=== PATIENT | male | born 2000 | race Native Hawaiian/Other Pacific Islander ===

== ENCOUNTER 2020-05-29 02:19 | Emergency (ER) | payer MEDICARE, MEDICAID, SELFPAY ==
--- NOTE | 2020-05-29 02:33 | ED_ITS ---
HPI - Psych General Chief Complaint: Psychiatric Symptoms Stated Complaint: FTT,NOT EATING OR TAKING MEDS,VIOLENT W/MOM Time Seen by Provider: 05/29/20 02:32 Source: family and EMS Mode of arrival: EMS Limitations: other (Sedated) History of Present Illness HPI Narrative: Patient comes via EMS. The patient's mother reports that for the last 2 weeks, the patient has been intermittently aggressive. Patient is known to have severe autism. Yesterday, EMS was called, they were unable to get the patient out of his room. The mother agreed with the patient that he could stay home. However today, the patient started hurting himself, punching kruse, hitting his head against a wall. EMS had to give the patient 5 mg of Haldol, Benadryl, Versed with no effect, the patient received 400 mg of ketamine prior to arrival. At this time, patient is sedated, his mother at bedside. The mother states that the patient has been in an institution in [place] in the past, he was referred from [facility]. The patient's mother requesting behavioral health network evaluation. According to the mother, the patient has otherwise been in good health, eating and drinking well. Patient refusing to take medications Related Data Home Medications Medication Instructions Recorded Confirmed aripiprazole [Abilify] 1 tab PO QAM 05/29/20 05/29/20 clonidine HCl 1 tab PO BEDTIME 05/29/20 05/29/20 clonidine HCl 1 tab PO QAM 05/29/20 05/29/20 gabapentin 1 tab PO TID 05/29/20 05/29/20 propranolol 1 tab PO BID 05/29/20 05/29/20 topiramate 1 tab PO BID 05/29/20 05/29/20 topiramate 2 tab PO BEDTIME 05/29/20 05/29/20 trazodone 1 - 2 tab PO BEDTIME PRN 05/29/20 05/29/20 Allergies Allergy/AdvReac Type Severity Reaction Status Date / Time amoxicillin [AMOXICILLIN] Allergy Intermediate RASH Unverified 12/24/19 16:39 Review of Systems Review of Systems: Yes Other (Sedated) [facility] Past Medical History Medical History (Updated 05/29/20 @ 03:33 by Lavonne Tai MD) Autism Social History Social History Advance Directives: No Advance Directives Information Provided: No Physical Exam Vital Signs: Vital Signs: Last Vital Signs Temp 98 F 05/29/20 02:34 Pulse 77 05/29/20 02:34 Resp 16 05/29/20 02:34 BP 102/49 L 05/29/20 02:34 Pulse Ox 97 05/29/20 02:34 Body Mass Index 40.6 Appearance: Sleeping, stated Eyes: Pupils equal, round and reactive to light. ENT: Pharynx normal. Neck: Normal inspection. Neck supple. No lymph nodes noted. No crepitus CVS: Normal heart rate and rhythm. Pulses normal. Normal S1 and S2 Respiratory: No respiratory distress. Breath sounds normal. No Wheezing. No rales Abdomen: Soft and nontender. No rigidity. No distention. good BS x4 Skin: Skin warm and dry. Normal skin color. Normal skin turgor. Extremities: No lower extremity edema. No lower extremity edema. No Lacerations. No Rash Neuro: Sedated, sleeping Course Course Course Narrative: Patient is medically cleared to be seen by [facility] once he wakes up. Sign-out given to Dr. Zabala [facility] - Psych Lab Data Result diagrams: 05/29/20 02:43 05/29/20 02:43 Labs: Lab Results 05/29/20 05/29/20 Range/Units 02:43 02:43 WBC 11.3 H (4.8-10.8) X10*3/uL RBC 5.85 H (4.60-5.80) X10*6/uL Hgb 17.3 (14.0-18.0) g/dl Hct 50.4 (42-52) % MCV 86.2 (80-98) fL MCH 29.6 (27.0-33.0) pg MCHC 34.3 (31.0-36.0) g/dl RDW 13.0 (11.0-16.0) % Plt Count 331 (160-400) X10*3/uL MPV 9.6 (9.4-12.4) fL Immature Gran % (Auto) 0.2 (0.0-0.4) % Neut % (Auto) 50.3 (45-73) % Lymph % (Auto) 38.1 (20-40) % Tripp % (Auto) 9.7 (2-11) % Eos % (Auto) 1.3 (0-4) % Baso % (Auto) 0.4 (0-2) % Lymph # (Auto) 4.3 (1.2-4.9) X10*3/uL Tripp # (Auto) 1.1 (0.1-1.2) X10*3/uL Eos # (Auto) 0.2 (0.0-0.4) X10*3/uL Baso # (Auto) 0.1 (0.0-0.2) X10*3/uL Abs Immat Gran (auto) 0.02 (0.00-0.03) X10*3/uL Absolute Neuts (auto) 5.7 (2.0-8.3) X10*3/uL Absolute Nucleated RBC 0.000 (0.0-0.012) X10*3/uL Nucleated RBC % (auto) 0.0 (0.0-0.2) /100WBC Sodium 141 (135-145) mmol/L Potassium 4.1 (3.3-5.1) mmol/L Chloride 110 H (96-108) mmol/L Carbon Dioxide 16 L (22-29) mmol/L Anion Gap 19 (12-20) BUN 16 (9-16) mg/dL Creatinine 0.99 (0.5-1.4) mg/dL Estim Creat Clear Calc 167.1 Estimated GFR > 60 Random Glucose 78 (60-115) mg/dL Calcium 9.7 (8.4-10.2) mg/dL Total Bilirubin 0.6 (0.0-1.0) mg/dL Direct Bilirubin 0.2 (0.0-0.5) mg/dL AST 9 (5-37) U/L ALT 22 (0-40) U/L Alkaline Phosphatase 101 (39-117) U/L Total Protein 7.6 (6.5-8.0) g/dL Albumin 4.7 (3.5-5.0) g/dL Discharge Plan Discharge Clinical Impression: Autism Prescriptions: No Action clonidine HCl 0.1 mg tablet 1 tab PO QAM RF: 0 gabapentin 600 mg tablet 1 tab PO TID RF: 0 clonidine HCl 0.2 mg tablet 1 tab PO BEDTIME RF: 0 propranolol 40 mg tablet 1 tab PO BID RF: 0 trazodone 100 mg tablet 1 - 2 tab PO BEDTIME PRN (Reason: Sleep) RF: 0 topiramate 100 mg tablet 2 tab PO BEDTIME RF: 0 aripiprazole [Abilify] 15 mg tablet 1 tab PO QAM RF: 0 topiramate 50 mg tablet 1 tab PO BID RF: 0
[2020-05-29 02:34] VITALS: BP 102/49; PULSE 77; RESP 16; TEMP 36.6; O2SAT 97; BMI 40.6
[2020-05-29 02:48] LABS: Basophils Absolute Auto 0.1 X10*3/uL (0.0-0.2); Basophils Percent Auto 0.4 % (0-2); Eosinophils Absolute Auto 0.2 X10*3/uL (0.0-0.4); Eosinophils Percent Auto 1.3 % (0-4); Hematocrit 50.4 % (42-52); Hemoglobin 17.3 g/dl (14.0-18.0); Imm Gran Abs Auto 0.02 X10*3/uL (0.00-0.03); Imm Gran Pct Auto 0.2 % (0.0-0.4); Lymphocytes Absolute Auto 4.3 X10*3/uL (1.2-4.9); Lymphocytes Percent Auto 38.1 % (20-40); MANUAL DIFF FLAG NO; Mean Corpuscular HGB Conc 34.3 g/dl (31.0-36.0); Mean Corpuscular Hemoglobin 29.6 pg (27.0-33.0); Mean Corpuscular Volume 86.2 fL (80-98); Mean Platelet Volume 9.6 fL (9.4-12.4); Monocytes Absolute Auto 1.1 X10*3/uL (0.1-1.2); Monocytes Percent Auto 9.7 % (2-11); Neutrophils Absolute Auto 5.7 X10*3/uL (2.0-8.3); Neutrophils Percent Auto 50.3 % (45-73); Platelet Count 331 X10*3/uL (160-400); Red Blood Count 5.85 X10*6/uL (4.60-5.80); White Blood Count 11.3 X10*3/uL (4.8-10.8)
[2020-05-29 03:19] LABS: Alanine Aminotransferase 22 U/L (0-40); Albumin Level 4.7 g/dL (3.5-5.0); Alkaline Phosphatase 101 U/L (39-117); Anion Gap 19 (12-20); Aspartate Amino Transferase 9 U/L (5-37); Bilirubin Direct 0.2 mg/dL (0.0-0.5); Bilirubin Total 0.6 mg/dL (0.0-1.0); Blood Urea Nitrogen 16 mg/dL (9-16); Calcium 9.7 mg/dL (8.4-10.2); Carbon Dioxide 16 mmol/L (22-29); Chloride 110 mmol/L (96-108); Creatinine Clr Calc Pharmacy 167.1; Estimated Glomerular Filt Rate > 60; Glucose Random 78 mg/dL (60-115); Potassium 4.1 mmol/L (3.3-5.1); Sodium 141 mmol/L (135-145); Total Protein 7.6 g/dL (6.5-8.0)
--- NOTE | 2020-05-29 03:24 | PC.NURSE ---
PT SLEEPING, RESPIRATIONS EASY, N/L. PT ON MONITOR. MOTHER AT BEDSIDE WITH PT. LABS DRAWN TO LAB. PT AWAITING TO GO TO CRISIS FOR EVAL.
[2020-05-29 06:00] VITALS: RESP 18
--- NOTE | 2020-05-29 06:47 | PC.NURSE ---
PT's mother is a comfort to the PT. Mother is familiar with hospital management and stated that she would try to get permission to sit with her son today on the unit.
--- NOTE | 2020-05-29 07:13 | PC.NURSE ---
Report received. Pt currently sleeping, respirations even and unlabored, in no apparent distress. Pt waiting to be seen by N.
[2020-05-29 09:38] VITALS: RESP 20
--- NOTE | 2020-05-29 14:09 | PC.NURSE ---
Pt currently standing in his room, calm and cooperative. Pt confused. Permission from nursing petroleum inspector supervisor for Pt's mother to visit as PT has autism and difficulties caring for himself and making needs known.
[2020-05-29 14:48] VITALS: BP 143/72; PULSE 90; RESP 16; TEMP 36.4; O2SAT 95
[2020-05-29] MEDS: Gabapentin 600 MG TABLET PO (15:06)
--- NOTE | 2020-05-29 18:33 | PC.NURSE ---
BHN at bedside for eval.
[2020-05-29 20:50] VITALS: BP 141/79; PULSE 110; RESP 20; TEMP 36.4; O2SAT 98
--- NOTE | 2020-05-29 20:54 | PC.NURSE ---
attempted to give patient night meds. patient groaned and kept eyes shut. will attempt to medicate again before 2200.
[2020-05-29 22:00] VITALS: RESP 16
[2020-05-30] VITALS (12 sets, daily range): BP systolic 131–142; BP diastolic 66–78; PULSE 95–112; RESP 18–20; TEMP 36.1–36.8; O2SAT 95–100
--- NOTE | 2020-05-30 00:39 | PC.NURSE ---
contact made to n: plan fo potential to be seen tonight, but unlikely.
--- NOTE | 2020-05-30 01:02 | PC.NURSE ---
pt requested to call mom. mother called on patient phone. pt given apple juice and ate snack. monitoring for further needs.
--- NOTE | 2020-05-30 01:10 | PC.NURSE ---
mom given update. plan to visit in am. patient given pudding. denies complaints.
--- NOTE | 2020-05-30 07:43 | PC.NURSE ---
Report received from TRU Yost. Pt awake, ate breakfast, currently back in bed, resting.
[2020-05-30] MEDS: ARIPiprazole 15 MG TABLET PO (09:07)
[2020-05-30] MEDS: Propranolol HCL 40 MG TABLET PO ×2 (09:07→19:59)
[2020-05-30] MEDS: Topiramate 25 MG TABLET 50 MG PO ×2 (09:08→20:00)
[2020-05-30] MEDS: cloNIDine HCL 0.1 MG TABLET PO (09:08)
[2020-05-30] MEDS: Gabapentin 600 MG TABLET PO ×3 (09:08→19:59)
--- NOTE | 2020-05-30 09:31 | PC.NURSE ---
Pt resting, awoken for medications, compliant w/ medications. Resting in room, now awake, directed to bathroom. Mother called earlier, spoke w/ MHA- will be in later this morning, pt aware.
--- NOTE | 2020-05-30 14:58 | PC.NURSE ---
Pt awake, alert. Mother in to see pt, pt eating snack.
--- NOTE | 2020-05-30 15:41 | PC.NURSE ---
Pt w/ mother, showering, med compliant.
[2020-05-30] MEDS: Bacitracin Oint 14 GM TUBE 1 APPL TOPICAL ×2 (16:12→20:03)
--- NOTE | 2020-05-30 16:12 | PC.NURSE ---
Small raised red area noted by mother on right thigh. A Renschler aware, hot compress applied, bacitracin applied as ordered
[2020-05-30 16:37] LABS: COVID-19 Test Negative (Negative)
--- NOTE | 2020-05-30 18:10 | PC.NURSE ---
Pt frequently out on unit, rarely speaking, smiling occasionally. Now in room, eating dinner.
[2020-05-30] MEDS: Topiramate 100 MG TABLET 200 MG PO (19:59)
[2020-05-30] MEDS: cloNIDine HCL 0.2 MG TABLET PO (19:59)
[2020-05-30] MEDS: traZODone HCL 100 MG TABLET PO (20:00)
--- NOTE | 2020-05-30 20:36 | PC.NURSE ---
Patient in hallway, calm, quiet, denied distress, compliant with HS PO medication will continue to monitor.
[2020-05-31] VITALS (10 sets, daily range): BP systolic 113–136; BP diastolic 61–75; PULSE 69–95; RESP 16–20; TEMP 36.1–36.6; O2SAT 94–99
[2020-05-31] MEDS: LORazepam 1 MG TABLET 2 MG PO ×2 (03:51→16:05)
--- NOTE | 2020-05-31 07:21 | PC.NURSE ---
Report received from TRU Queen. Pt resting, resp unlabored.
[2020-05-31] MEDS: Topiramate 25 MG TABLET 50 MG PO ×2 (09:58→20:58)
[2020-05-31] MEDS: Gabapentin 600 MG TABLET PO ×3 (09:59→20:58)
[2020-05-31] MEDS: cloNIDine HCL 0.1 MG TABLET PO (09:59)
[2020-05-31] MEDS: Propranolol HCL 40 MG TABLET PO ×2 (10:00→20:58)
[2020-05-31] MEDS: ARIPiprazole 15 MG TABLET PO (10:01)
--- NOTE | 2020-05-31 11:14 | PC.NURSE ---
Mother called to say she was going to visit this afternoon.
[2020-05-31] MEDS: Bacitracin Oint 14 GM TUBE 1 APPL TOPICAL ×3 (11:15→21:01)
--- NOTE | 2020-05-31 11:15 | PC.NURSE ---
Right groin- small raised red area treated as ordered - area clean, no increase noted from yesterday.
--- NOTE | 2020-05-31 14:00 | PC.NURSE ---
Pt currently eating lunch, no concerns reported, pleasant, smiling occasionally.
--- NOTE | 2020-05-31 15:51 | PC.NURSE ---
Mother in w/ pt- pt showered, linens changed, pt cooperative w/ care, rarely verbal, no evidence of distress or pain noted.
--- NOTE | 2020-05-31 19:49 | PC.NURSE ---
Patient is in hallway, wandering quietly, starring at nurses, able to express need well, denied distress, will continue to monitor.
[2020-05-31] MEDS: Topiramate 100 MG TABLET 200 MG PO (20:58)
[2020-05-31] MEDS: cloNIDine HCL 0.2 MG TABLET PO (20:58)
--- NOTE | 2020-06-01 02:03 | PC.NURSE ---
patient asleep, unable to assesses [place]zell scale
--- NOTE | 2020-06-01 07:19 | PC.NURSE ---
REPORT FROM DIAZ. PT UP AT BEDSIDE EATING BREAKFAST
[2020-06-01 09:07] VITALS: BP 123/64; PULSE 87
[2020-06-01] MEDS: cloNIDine HCL 0.1 MG TABLET PO (09:07)
[2020-06-01] MEDS: Topiramate 25 MG TABLET 50 MG PO ×2 (09:07→20:02)
[2020-06-01] MEDS: Gabapentin 600 MG TABLET PO ×3 (09:07→20:02)
[2020-06-01] MEDS: ARIPiprazole 15 MG TABLET PO (09:08)
[2020-06-01 09:12] VITALS: BP 123/64; PULSE 87
[2020-06-01] MEDS: Propranolol HCL 40 MG TABLET PO ×2 (09:12→20:02)
--- NOTE | 2020-06-01 15:42 | PC.NURSE ---
Patient accompanied by mom upon arrival. No distress. Mom left but will return. will monitor for changes.
[2020-06-01 17:07] VITALS: BP 138/67; PULSE 72; RESP 18; TEMP 36.7; O2SAT 99
--- NOTE | 2020-06-01 19:41 | PC.NURSE ---
Patient is in hallway wandering quietly, behavior calm and quiet, no distress reported, will continue to monitor.
[2020-06-01 20:00] VITALS: BP 117/65; PULSE 88
[2020-06-01 20:02] VITALS: BP 117/65; PULSE 88
[2020-06-01] MEDS: traZODone HCL 100 MG TABLET PO (20:02)
[2020-06-01] MEDS: Topiramate 100 MG TABLET 200 MG PO (20:02)
[2020-06-01] MEDS: cloNIDine HCL 0.2 MG TABLET PO (20:02)
[2020-06-01] MEDS: Bacitracin Oint 14 GM TUBE 1 APPL TOPICAL (20:07)
[2020-06-01] MEDS: LORazepam 1 MG TABLET 2 MG PO (22:02)
[2020-06-02 06:00] VITALS: BP 117/65; PULSE 86; RESP 18; TEMP 35.7; O2SAT 98
--- NOTE | 2020-06-02 07:01 | PC.NURSE ---
Report received. PT currently eating breakfast, calm and cooperative. PT is inpatient bedsearch.
[2020-06-02 09:18] VITALS: BP 140/69; PULSE 82; RESP 16; TEMP 36.9; O2SAT 95
[2020-06-02] MEDS: Topiramate 25 MG TABLET 50 MG PO ×2 (09:43→21:52)
[2020-06-02 09:44] VITALS: BP 140/69; PULSE 82
[2020-06-02] MEDS: Propranolol HCL 40 MG TABLET PO ×2 (09:44→21:53)
[2020-06-02] MEDS: Bacitracin Oint 14 GM TUBE 1 APPL TOPICAL (09:44)
[2020-06-02] MEDS: Gabapentin 600 MG TABLET PO ×3 (09:44→21:55)
[2020-06-02] MEDS: ARIPiprazole 15 MG TABLET PO (09:44)
[2020-06-02] MEDS: cloNIDine HCL 0.1 MG TABLET PO (09:44)
--- NOTE | 2020-06-02 10:09 | PC.NURSE ---
PT resting, calm and cooperative. Pt requested to call his mom, she states she will be in to visit later this afternoon.
--- NOTE | 2020-06-02 19:10 | PC.NURSE ---
Report received. PT is standing by the nurse's station, asking to speak with his mother. Calm and cooperative. PT is inpatient bed search.
[2020-06-02 20:00] VITALS: BP 136/73; PULSE 94; RESP 18; TEMP 36.5; O2SAT 95
[2020-06-02 21:53] VITALS: BP 136/73; PULSE 94
[2020-06-02 21:54] VITALS: BP 136/73; PULSE 94
[2020-06-02] MEDS: Topiramate 100 MG TABLET 200 MG PO (21:54)
[2020-06-02] MEDS: cloNIDine HCL 0.2 MG TABLET PO (21:54)
[2020-06-03] VITALS: BP 131/78; PULSE 84; RESP 18; TEMP 35.8; O2SAT 95
--- NOTE | 2020-06-03 07:05 | PC.NURSE ---
Report received. PT currently resting, calm and cooperative. PT is inpatient bedsearch.
[2020-06-03 07:41] VITALS: BP 114/60; PULSE 76; RESP 16; TEMP 36.9; O2SAT 96
[2020-06-03 09:17] VITALS: BP 114/60; PULSE 76
[2020-06-03] MEDS: cloNIDine HCL 0.1 MG TABLET PO (09:17)
[2020-06-03] MEDS: ARIPiprazole 15 MG TABLET PO (09:17)
[2020-06-03] MEDS: Propranolol HCL 40 MG TABLET PO ×2 (09:17→20:05)
[2020-06-03] MEDS: Gabapentin 600 MG TABLET PO ×3 (09:17→20:04)
[2020-06-03] MEDS: Bacitracin Oint 14 GM TUBE 1 APPL TOPICAL ×2 (09:17→20:07)
[2020-06-03] MEDS: Topiramate 25 MG TABLET 50 MG PO ×2 (09:17→20:05)
[2020-06-03] MEDS: LORazepam 1 MG TABLET 2 MG PO (15:47)
[2020-06-03 16:00] VITALS: RESP 19
--- NOTE | 2020-06-03 17:46 | PC.NURSE ---
PT currently walking around his room, calm and cooperative.
--- NOTE | 2020-06-03 19:44 | PC.NURSE ---
Patient just got back to is room after finishing his ice cream in the milieu, calm and quiet, delayed response, denied distress, will continue to monitor
[2020-06-03] MEDS: Topiramate 100 MG TABLET 200 MG PO (20:04)
[2020-06-03 20:05] VITALS: BP 149/74; PULSE 76
[2020-06-03] MEDS: cloNIDine HCL 0.2 MG TABLET PO (20:05)
[2020-06-03] MEDS: traZODone HCL 100 MG TABLET PO (20:05)
[2020-06-03 20:11] VITALS: BP 149/74; PULSE 76; RESP 18; TEMP 36.3; O2SAT 96
[2020-06-04] VITALS (8 sets, daily range): BP systolic 112–141; BP diastolic 68–81; PULSE 72–102; RESP 15–20; TEMP 36.4–36.7; O2SAT 92–95
--- NOTE | 2020-06-04 07:31 | PC.NURSE ---
Report received from TRU Queen. Pt resting currently, awake on arrival, no concerns reported.
[2020-06-04] MEDS: cloNIDine HCL 0.1 MG TABLET PO (09:08)
[2020-06-04] MEDS: ARIPiprazole 15 MG TABLET PO (09:08)
[2020-06-04] MEDS: Gabapentin 600 MG TABLET PO ×3 (09:09→20:06)
[2020-06-04] MEDS: Propranolol HCL 40 MG TABLET PO ×2 (09:09→20:06)
[2020-06-04] MEDS: Topiramate 25 MG TABLET 50 MG PO ×2 (09:09→20:06)
--- NOTE | 2020-06-04 11:05 | PC.NURSE ---
Pt awake, alert. Pt appears less bright today. Mother in to see pt. BHN in currently with pt.
--- NOTE | 2020-06-04 12:37 | PC.NURSE ---
Pt awake, pacing w/ MHA, listened to music briefly, dancing and singing.
--- NOTE | 2020-06-04 14:44 | PC.NURSE ---
Mother in w/ pt- pt medicated for increased anxiety, restlessness. Pt reporting that he wants to go home.
[2020-06-04] MEDS: LORazepam 1 MG TABLET 2 MG PO (14:54)
--- NOTE | 2020-06-04 16:41 | PC.NURSE ---
Pt mildly restless, walked w/ pt around unit, then pt called mother.
[2020-06-04] MEDS: traZODone HCL 100 MG TABLET PO (20:06)
[2020-06-04] MEDS: Topiramate 100 MG TABLET 200 MG PO (20:06)
[2020-06-04] MEDS: cloNIDine HCL 0.2 MG TABLET PO (20:07)
[2020-06-04] MEDS: Bacitracin Oint 14 GM TUBE 1 APPL TOPICAL (20:20)
--- NOTE | 2020-06-04 22:00 | PC.NURSE ---
Patient in bed currently, resting quietly, no distress observed or reported, spoke with mother on phone, compliant with HS PO medication, will continue to monitor.
--- NOTE | 2020-06-05 05:50 | PC.NURSE ---
Patient just got up, upset, confused, called mother and have him talked to mother to deescalate the behavior, per mother this is new development which worried her at home, provider notified/no new order at this time, patient's mood settled after talking to his mother, used bathroom and back, currently in his bed, will continue to monitor.
[2020-06-05] MEDS: Gabapentin 600 MG TABLET PO ×3 (08:49→20:02)
[2020-06-05] MEDS: Topiramate 25 MG TABLET 50 MG PO ×2 (08:49→20:01)
[2020-06-05 08:57] VITALS: BP 124/64; PULSE 79
[2020-06-05] MEDS: Propranolol HCL 40 MG TABLET PO ×2 (08:57→20:02)
[2020-06-05 08:59] VITALS: BP 124/64; PULSE 79
[2020-06-05] MEDS: cloNIDine HCL 0.1 MG TABLET PO (08:59)
[2020-06-05 09:17] VITALS: BP 124/64; PULSE 79; RESP 20; TEMP 36.4; O2SAT 93
[2020-06-05] MEDS: ARIPiprazole 15 MG TABLET PO (09:24)
--- NOTE | 2020-06-05 09:36 | PC.NURSE ---
Pt resting in bed at current. No signs of distress. Respirations unlabored.
--- NOTE | 2020-06-05 11:54 | PC.NURSE ---
Pt resting in room, no complaints or signs of agitation at this time.
--- NOTE | 2020-06-05 13:51 | PC.NURSE ---
RN spoke with La Nena from [facility]. Pt has been accepted at [facility] for a pending admission time of 1000 tomorrow,
--- NOTE | 2020-06-05 16:37 | PC.NURSE ---
Pt was awake, alert, smiling at times. Currently resting in room.
--- NOTE | 2020-06-05 17:41 | PC.NURSE ---
Pt appears to be increasingly anxious, asking to call his mother twice in short period of time. Provider aware. Pt also declining vital signs at this time.
[2020-06-05] MEDS: LORazepam 1 MG TABLET 2 MG PO (17:45)
--- NOTE | 2020-06-05 18:09 | PC.NURSE ---
Pt eating dinner at this time, appears less anxious.
[2020-06-05 20:01] VITALS: BP 125/67; PULSE 95
[2020-06-05] MEDS: cloNIDine HCL 0.2 MG TABLET PO (20:01)
[2020-06-05 20:02] VITALS: BP 125/67; PULSE 95
[2020-06-05] MEDS: Topiramate 100 MG TABLET 200 MG PO (20:02)
[2020-06-05] MEDS: traZODone HCL 100 MG TABLET PO (20:02)
--- NOTE | 2020-06-05 21:42 | PC.NURSE ---
Patient compliant with HS PO medication, VS at baseline, Behavior calm and quiet, patient spoke with his mother, [facility] called/spoke with Jewel/confirmed admission/paper work with ED corporation secretary/patient's ETA is 1030 am at [facility]. Mother made aware, will continue to monitor.
[2020-06-06] MEDS: LORazepam 1 MG TABLET 2 MG PO ×2 (01:16→08:28)
--- NOTE | 2020-06-06 06:53 | PC.NURSE ---
Report received. PT currently sleeping, respirations even and unlabored, in no apaprent distress. Pt to be transferred to [facility] this morning.
[2020-06-06 07:49] VITALS: BP 119/73; PULSE 94; RESP 20; TEMP 36.3; O2SAT 94
[2020-06-06 08:19] VITALS: O2SAT 95
[2020-06-06 08:28] VITALS: BP 119/73; PULSE 94
[2020-06-06] MEDS: Topiramate 25 MG TABLET 50 MG PO (08:28)
[2020-06-06] MEDS: cloNIDine HCL 0.1 MG TABLET PO (08:28)
[2020-06-06] MEDS: Gabapentin 600 MG TABLET PO (08:28)
[2020-06-06] MEDS: ARIPiprazole 15 MG TABLET PO (08:29)
[2020-06-06] MEDS: Propranolol HCL 40 MG TABLET PO (08:29)
[2020-06-06] MEDS: Bacitracin Oint 14 GM TUBE 1 APPL TOPICAL (08:30)
[2020-06-06 09:07] VITALS: BP 120/86; PULSE 96; RESP 16; TEMP 36.9; O2SAT 95
== END 2020-06-06 09:25 ==
PROVIDERS: Physician Assistant; Emergency Provider Emergency Medicine
DX: F84.0 Autistic disorder (principal); F91.9 Conduct disorder, unspecified; Z91.14 Patient's other noncompliance with medication regimen; Z20.822 Contact with and (suspected) exposure to COVID-19; Z79.899 Other long term (current) drug therapy; Z72.89 Other problems related to lifestyle
CPT/HCPCS: 36415; 80048; 80076; 85025; 87635; 99285

== ENCOUNTER 2020-08-18 04:58 | Emergency (ER) | payer MEDICARE, MEDICAID, SELFPAY ==
[2020-08-18] VITALS (9 sets, daily range): BP systolic 125–150; BP diastolic 55–85; PULSE 81–112; RESP 16–20; TEMP 36.6–37.1; O2SAT 95–100; BMI 42.8
--- NOTE | 2020-08-18 05:41 | ED_ITS ---
HPI - Psych General Chief Complaint: Psychiatric Symptoms Stated Complaint: CRISIS Time Seen by Provider: 08/18/20 05:33 Source: EMS Mode of arrival: EMS Limitations: altered mental status History of Present Illness HPI Narrative: Patient comes to the emergency room for increased aggression. The mother reports that over last 3 days, patient has been hitting himself, biting his arms ( without roken skin). Patient has been up at nights, screaming, banging on the kruse and the doors. This evening, the patient started screaming, went to the patient's room, shook up violently the mother, the father tried to calm him down, but push the father aside. The ambulance had to be called, police department was there to. Patient had to be medically restrained with 400 mg of IM ketamine. Patient is unable to give any history. Patient is now at patient's bedside. Patient is known to have autism and have episodes of severe aggression. Related Data Home Medications Medication Instructions Recorded Confirmed aripiprazole [Abilify] 15 mg PO QAM 05/29/20 08/18/20 clonidine HCl 0.2 mg PO BEDTIME 05/29/20 08/18/20 clonidine HCl 1 tab PO QAM 05/29/20 08/18/20 gabapentin 600 mg PO TID 05/29/20 08/18/20 topiramate 50 mg PO BID 05/29/20 08/18/20 topiramate 100 mg PO BEDTIME 05/29/20 08/18/20 trazodone 1 - 2 tab PO BEDTIME PRN 05/29/20 08/18/20 Allergies Allergy/AdvReac Type Severity Reaction Status Date / Time amoxicillin [AMOXICILLIN] Allergy Intermediate RASH Verified 05/31/20 11:13 Review of Systems Review of Systems: Yes Unobtainable due to mental condition PMFSH Past Medical History Medical History Autism Social History Social History Advance Directives: No Advance Directives Information Provided: No Physical Exam Vital Signs: Vital Signs: Last Vital Signs Temp 98.4 F 08/18/20 06:24 Pulse 81 08/18/20 06:24 Resp 19 08/18/20 06:24 BP 125/55 L 08/18/20 06:24 Pulse Ox 95 08/18/20 06:24 Body Mass Index 42.8 Appearance: Alert. Unable to give any history, patient is awake but just received ketamine prior to arrival Eyes: Pupils equal, round and reactive to light. ENT: Pharynx normal. Neck: Normal inspection. Neck supple. No lymph nodes noted. No crepitus CVS: Normal heart rate and rhythm. Pulses normal. Respiratory: No respiratory distress. Breath sounds normal. No Wheezing. No rales Abdomen: Soft and nontender. No rigidity. No distention. Skin: Skin warm and dry. Patient has ecchymosis in his forearms, no broken skin. Extremities: No lower extremity edema. Neuro: Patient recently received ketamine, patient is awake, unable to follow commands at the moment. Course Course Course Narrative: Patient will be evaluated by [facility]. Patient received 400 mg of IM ketamine, patient is awake, calm. Sign-out given to Dr. Zabala. [facility] - Psych Lab Data Labs: Lab Results 08/18/20 Range/Units 05:34 COVID-19 ([facility]) Negative (Negative) COVID-19 Clin Com See Note Discharge Plan Discharge Prescriptions: No Action clonidine HCl 0.1 mg tablet 1 tab PO QAM RF: 0 gabapentin 600 mg tablet 600 mg PO TID RF: 0 clonidine HCl 0.2 mg tablet 0.2 mg PO BEDTIME RF: 0 trazodone 100 mg tablet 1 - 2 tab PO BEDTIME PRN (Reason: Sleep) RF: 0 topiramate 100 mg tablet 100 mg PO BEDTIME RF: 0 aripiprazole [Abilify] 15 mg tablet 15 mg PO QAM RF: 0 topiramate 50 mg tablet 50 mg PO BID RF: 0
[2020-08-18 05:57] LABS: COVID-19 Test Negative (Negative); IDNOW Serial# 9DD0AD1C
--- NOTE | 2020-08-18 06:39 | PC.NURSE ---
MADHAVIN faxed/called/spoke with Kanika and program coordinator for residence life Lachelle, provided information required, patient will be seen in within an hour, N made aware that patient is not in position to provide you any information because of patient's mental status, need to call mother Carie, for intake, patient is in bed appears sleeping, no distress observed/reported, VSS, will continue to monitor.
--- NOTE | 2020-08-18 07:15 | PC.NURSE ---
Report received from TRU Queen. Pt resting, resp unlabored.
[2020-08-18] MEDS: Topiramate 25 MG TABLET 50 MG PO ×2 (08:59→20:36)
[2020-08-18] MEDS: Gabapentin 600 MG TABLET PO ×3 (08:59→20:36)
[2020-08-18] MEDS: ARIPiprazole 15 MG TABLET PO (09:00)
[2020-08-18] MEDS: cloNIDine HCL 0.1 MG TABLET PO (09:00)
--- NOTE | 2020-08-18 09:06 | PC.NURSE ---
Pt resting, easily awakened for medications and vitals, cooperative w/ care, no concerns reported.
--- NOTE | 2020-08-18 10:50 | PC.NURSE ---
Pt resting, resp unlabored
--- NOTE | 2020-08-18 12:05 | PC.NURSE ---
Pt resting, resp unlabored
--- NOTE | 2020-08-18 12:18 | PC.NURSE ---
Pt resting, resp unlabored
--- NOTE | 2020-08-18 14:22 | PC.NURSE ---
Pt eating lunch, continues to be in behavioral control, no concerns reported.
--- NOTE | 2020-08-18 15:52 | PC.NURSE ---
Pt awake, assisted w/ call to mother.
--- NOTE | 2020-08-18 17:18 | PC.NURSE ---
Pt's mother in to speak w/ BHN
[2020-08-18] MEDS: LORazepam 1 MG TABLET 2 MG PO (17:31)
--- NOTE | 2020-08-18 18:05 | PC.NURSE ---
Pt ate dinner, appears mildly restless, but in behavioral control.
--- NOTE | 2020-08-18 19:19 | PC.NURSE ---
Patient in bed resting quietly, no distress observed/reported, patient decent day with baseline behavior presentation, will continue to monitor.
[2020-08-18] MEDS: Topiramate 100 MG TABLET PO (20:36)
[2020-08-18] MEDS: traZODone HCL 100 MG TABLET PO (20:36)
[2020-08-18] MEDS: cloNIDine HCL 0.2 MG TABLET PO (20:37)
[2020-08-19] VITALS (7 sets, daily range): BP systolic 109–151; BP diastolic 51–95; PULSE 90–107; RESP 15–20; TEMP 35.9–36.9; O2SAT 94–96
--- NOTE | 2020-08-19 07:28 | PC.NURSE ---
Report received from TRU Queen. Pt resting, resp unlabored.
[2020-08-19] MEDS: cloNIDine HCL 0.1 MG TABLET PO (07:56)
[2020-08-19] MEDS: ARIPiprazole 15 MG TABLET PO (07:57)
[2020-08-19] MEDS: Gabapentin 600 MG TABLET PO ×3 (07:57→20:39)
[2020-08-19] MEDS: Topiramate 25 MG TABLET 50 MG PO ×2 (07:57→20:39)
--- NOTE | 2020-08-19 08:57 | PC.NURSE ---
Pt resting, resp unlabored
--- NOTE | 2020-08-19 12:54 | PC.NURSE ---
Pt resting, resp unlabored
--- NOTE | 2020-08-19 15:35 | PC.NURSE ---
pt's mother in, assisted pt w/ showering, brought in meal. Pt cooperatiove w/ care, affect even.
--- NOTE | 2020-08-19 17:18 | PC.NURSE ---
Pt resting in room, resp unlabored
--- NOTE | 2020-08-19 19:30 | PC.NURSE ---
Report received. PT is resting quietly in bed. Calm and cooperative. PT is inpatient bed search.
[2020-08-19] MEDS: Topiramate 100 MG TABLET PO (20:39)
[2020-08-19] MEDS: cloNIDine HCL 0.2 MG TABLET PO (20:39)
[2020-08-19] MEDS: traZODone HCL 100 MG TABLET PO (20:44)
--- NOTE | 2020-08-20 06:54 | PC.NURSE ---
received report from previous RN patient appears in no distress, patient appears to remain asleep with even unlabored breaths.
[2020-08-20 07:54] VITALS: BP 122/71; PULSE 80; RESP 18; TEMP 36.6; O2SAT 96
[2020-08-20 07:58] VITALS: BP 122/71; PULSE 80
[2020-08-20] MEDS: cloNIDine HCL 0.1 MG TABLET PO (07:58)
[2020-08-20] MEDS: Topiramate 25 MG TABLET 50 MG PO ×2 (07:58→21:33)
[2020-08-20] MEDS: Gabapentin 600 MG TABLET PO ×3 (07:58→21:32)
[2020-08-20] MEDS: ARIPiprazole 15 MG TABLET PO (07:58)
--- NOTE | 2020-08-20 09:03 | PC.NURSE ---
mother called to check on status of patient, verified that shed arrive around 12pm
--- NOTE | 2020-08-20 09:19 | MHC.CARE ---
CARE spoke with particle board supervisor Alli at [facility] who confirmed that pt is a [facility] DDS bedsearch and is aware pt is overdue for MSU and they are sending a clinician to do a re-eval this am.
--- NOTE | 2020-08-20 19:00 | PC.NURSE ---
Report received. PT is pacing around room. Calm and cooperative. PT is inpatient bed search.
[2020-08-20] MEDS: Topiramate 100 MG TABLET PO (21:33)
[2020-08-20 21:34] VITALS: BP 125/72; PULSE 85
[2020-08-20] MEDS: cloNIDine HCL 0.2 MG TABLET PO (21:34)
[2020-08-20 21:39] VITALS: BP 125/72; PULSE 85; RESP 20; TEMP 36.9; O2SAT 97
[2020-08-21] MEDS: traZODone HCL 100 MG TABLET PO ×2 (00:03→21:30)
[2020-08-21 00:13] VITALS: BP 120/72; PULSE 87; RESP 17; TEMP 36.2; O2SAT 97
--- NOTE | 2020-08-21 07:01 | PC.NURSE ---
Report recieved. PT currently resting, calm and cooperative. Ambulated to bathroom with steady gait. PT is inpatient bedsearch.
[2020-08-21 08:22] VITALS: BP 126/69; PULSE 93; RESP 18; TEMP 36.5; O2SAT 96
[2020-08-21 08:28] VITALS: BP 126/69; PULSE 93
[2020-08-21] MEDS: Gabapentin 600 MG TABLET PO ×3 (08:28→21:30)
[2020-08-21] MEDS: Topiramate 25 MG TABLET 50 MG PO ×2 (08:28→21:30)
[2020-08-21] MEDS: ARIPiprazole 15 MG TABLET PO (08:28)
[2020-08-21] MEDS: cloNIDine HCL 0.1 MG TABLET PO (08:28)
[2020-08-21] MEDS: LORazepam 1 MG TABLET 2 MG PO ×2 (14:26→23:05)
[2020-08-21 16:34] VITALS: BP 128/64; PULSE 90; RESP 18; TEMP 36.9; O2SAT 97
--- NOTE | 2020-08-21 19:18 | PC.NURSE ---
Report received. PT is sitting in his room, eating a sandwich. Calm and cooperative. PT is inpatient bed search.
[2020-08-21 21:31] VITALS: BP 132/88; PULSE 97
[2020-08-21] MEDS: cloNIDine HCL 0.2 MG TABLET PO (21:31)
[2020-08-21] MEDS: Topiramate 100 MG TABLET PO (21:31)
[2020-08-22 06:53] VITALS: BP 117/66; PULSE 102; RESP 18; TEMP 36.9; O2SAT 98
--- NOTE | 2020-08-22 07:20 | PC.NURSE ---
Report received from TRU Kathleen. Pt awake, ate breakfast, no concerns reported.
[2020-08-22 07:59] VITALS: BP 133/66; PULSE 87
[2020-08-22] MEDS: Gabapentin 600 MG TABLET PO ×3 (07:59→20:03)
[2020-08-22] MEDS: cloNIDine HCL 0.1 MG TABLET PO (07:59)
[2020-08-22] MEDS: Topiramate 25 MG TABLET 50 MG PO ×2 (07:59→20:02)
[2020-08-22] MEDS: ARIPiprazole 15 MG TABLET PO (08:00)
[2020-08-22 08:57] VITALS: BP 128/68; PULSE 93; RESP 18; TEMP 36.8; O2SAT 97
--- NOTE | 2020-08-22 09:42 | PC.NURSE ---
Pt OOB briefly, anxious briefly, focused on shutting another patient's door- able to redirect, called his mother, is currently resting, resp unlabored.
--- NOTE | 2020-08-22 12:16 | PC.NURSE ---
Pt's mother in, pt showered, continues to appear mildly restless, currently standing in room. When asked pt stated that he was 'happy.'
[2020-08-22 14:00] VITALS: RESP 20
--- NOTE | 2020-08-22 14:26 | PC.NURSE ---
Pt evaluated w/ BHN who will contact mother for update re:DDS arrangements.
--- NOTE | 2020-08-22 15:38 | PC.NURSE ---
Pt's mother in w/ pt- plan per mother and BHN pt to be discharged tomorrow back to mother's care.
[2020-08-22 17:39] VITALS: BP 139/73; PULSE 97; RESP 16; TEMP 36.7; O2SAT 95
[2020-08-22] MEDS: traZODone HCL 100 MG TABLET PO (19:53)
[2020-08-22] MEDS: LORazepam 1 MG TABLET 2 MG PO (19:53)
[2020-08-22 20:02] VITALS: BP 138/65; PULSE 91
[2020-08-22] MEDS: cloNIDine HCL 0.2 MG TABLET PO (20:02)
[2020-08-22] MEDS: Topiramate 100 MG TABLET PO (20:03)
[2020-08-23 00:49] VITALS: BP 129/66; PULSE 104; TEMP 36.4; O2SAT 97
[2020-08-23] MEDS: LORazepam 1 MG TABLET 2 MG PO (01:56)
--- NOTE | 2020-08-23 07:21 | PC.NURSE ---
Report received from TRU Queen. Pt resting, resp unlabored.
[2020-08-23] MEDS: Gabapentin 600 MG TABLET PO ×2 (08:07→14:28)
[2020-08-23] MEDS: ARIPiprazole 15 MG TABLET PO (08:07)
[2020-08-23 08:08] VITALS: BP 148/70; PULSE 101; RESP 18; TEMP 36.6; O2SAT 99
[2020-08-23] MEDS: cloNIDine HCL 0.1 MG TABLET PO (08:08)
[2020-08-23] MEDS: Topiramate 25 MG TABLET 50 MG PO (08:08)
--- NOTE | 2020-08-23 12:24 | PC.NURSE ---
Pt sitting on bed, mildly restless; assisted w/ call to mother - awaiting possible discharge to care of mother.
--- NOTE | 2020-08-23 13:51 | PC.NURSE ---
Pt out near nurse's station; dancing to music.
--- NOTE | 2020-08-23 14:55 | PC.NURSE ---
Pt's mother in to take pt home. Pt eager to return home, cooperative w/ care, no concerns demonstrated.
== END 2020-08-23 14:56 | disposition home or self-care (01) ==
PROVIDERS: Emergency Provider Emergency Medicine
DX: F91.8 Other conduct disorders (principal); F84.0 Autistic disorder; Z20.822 Contact with and (suspected) exposure to COVID-19; S50.12XA Contusion of left forearm, initial encounter; S50.11XA Contusion of right forearm, initial encounter; X83.8XXA Intentional self-harm by other specified means, initial encounter; Y93.9 Activity, unspecified; Y92.019 Unspecified place in single-family (private) house as the place of occurrence of the external cause; Y99.9 Unspecified external cause status
CPT/HCPCS: 36415; 87635; 99284; 99285

== ENCOUNTER 2020-11-05 19:19 | Emergency (ER) | payer MEDICARE, MEDICAID, SELFPAY ==
[2020-11-05 19:30] VITALS: BP 124/62; PULSE 78; RESP 18; TEMP 36.2; O2SAT 100; BMI 38.0
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
[2020-11-05 20:10] LABS: MANUAL DIFF FLAG NO
[2020-11-05 20:14] LABS: Basophils Percent Auto 0.4 % (0-2); Eosinophils Absolute Auto 0.1 X10*3/uL (0.0-0.4); Eosinophils Percent Auto 0.7 % (0-4); Hematocrit 48.8 % (42-52); Hemoglobin 16.8 g/dl (14.0-18.0); Imm Gran Abs Auto 0.04 X10*3/uL (0.00-0.03); Imm Gran Pct Auto 0.4 % (0.0-0.4); Lymphocytes Absolute Auto 2.5 X10*3/uL (1.2-4.9); Lymphocytes Percent Auto 23.6 % (20-40); Mean Corpuscular HGB Conc 34.4 g/dl (31.0-36.0); Mean Corpuscular Hemoglobin 30.2 pg (27.0-33.0); Mean Corpuscular Volume 87.6 fL (80-98); Mean Platelet Volume 9.2 fL (9.4-12.4); Monocytes Absolute Auto 0.9 X10*3/uL (0.1-1.2); Monocytes Percent Auto 8.3 % (2-11); Neutrophils Percent Auto 66.6 % (45-73); Platelet Count 308 X10*3/uL (160-400); Red Blood Count 5.57 X10*6/uL (4.60-5.80); Red Cell Distribution Width 12.3 % (11.0-16.0); White Blood Count 10.5 X10*3/uL (4.8-10.8)
[2020-11-05 20:24] LABS: COVID-19 Test Negative (Negative)
[2020-11-05 20:30] LABS: Ethanol < 10 mg/dL
[2020-11-05 20:32] LABS: Anion Gap 12 (12-20); Blood Urea Nitrogen 13 mg/dL (9-16); Calcium 9.8 mg/dL (8.4-10.2); Carbon Dioxide 25 mmol/L (22-29); Chloride 108 mmol/L (96-108); Creatinine Clr Calc Pharmacy 141.9; Estimated Glomerular Filt Rate > 60; Glucose Random 77 mg/dL (60-115); Potassium 3.9 mmol/L (3.3-5.1); Sodium 141 mmol/L (135-145)
[2020-11-05 20:41] VITALS: BP 128/68; PULSE 79
[2020-11-05] MEDS: cloNIDine HCL 0.2 MG TABLET PO (20:41)
[2020-11-05] MEDS: traZODone HCL 100 MG TABLET PO (20:41)
[2020-11-05] MEDS: cloNIDine HCL 0.1 MG TABLET PO (20:41)
[2020-11-05] MEDS: Gabapentin 600 MG TABLET PO (20:41)
[2020-11-05] MEDS: Topiramate 25 MG TABLET 50 MG PO (20:42)
[2020-11-05 21:44] LABS: Glucose Urine UA NEG (NEG); Leukocyte Esterase Urine NEG (NEG); Nitrite Urine NEG (NEG); Specific Gravity - Urine <= 1.005 (1.005-1.025); Urine Blood NEG (NEG); Urine Ketones NEG (NEG); Urine Protein NEG (NEG-TRACE)
[2020-11-05 21:59] LABS: Appearance Urine CLEAR; Color Urine STRAW; RBC Urine 0 /HPF (0); WBC Urine 0-2 /HPF (0-4)
[2020-11-05 22:00] LABS: Mucus Urine TRACE /LPF; Squamous Epithelial Cell Urine TRACE /LPF
[2020-11-05 22:13] LABS: Amphetamine Screen Urine Not Detected (Not Detect); Barbiturates, Urine Not Detected (Not Detect); Benzodiazepines Screen Urine Not Detected (Not Detect); Cannabinoid Screen Urine Not Detected (Not Detect); Cocaine Screen Urine Not Detected (Not Detect); Opiate Screen Urine Not Detected (Not Detect); Phencyclidine Screen Urine Not Detected (Not Detect)
[2020-11-06 05:04] VITALS: BP 116/43; PULSE 69; RESP 18; TEMP 36.2; O2SAT 96
--- NOTE | 2020-11-06 06:55 | PC.NURSE ---
Patient slept through the night, no distress observed/reported, med compliant, awaiting N evaluation, mother has some concerns about the residential home, VSS, will continue to monitor.
--- NOTE | 2020-11-06 07:50 | PC.NURSE ---
patient appears at rest upon t/w's arrival to unit, patient appears in no distress, respirations are even and unlabored.
[2020-11-06 08:06] VITALS: BP 133/57; RESP 16
[2020-11-06 08:09] VITALS: BP 133/57; PULSE 69
[2020-11-06] MEDS: cloNIDine HCL 0.1 MG TABLET PO ×2 (08:09→20:21)
[2020-11-06] MEDS: Topiramate 25 MG TABLET 50 MG PO ×2 (08:10→20:22)
[2020-11-06] MEDS: Gabapentin 600 MG TABLET PO ×3 (08:10→20:21)
--- NOTE | 2020-11-06 08:51 | PC.NURSE ---
mother called to get update on client status/behavior. t/w told mom client looked relaxed, client periodically sings, paces from nurse station to his room. encouraged to color and set up activity, but patient did not engage.
--- NOTE | 2020-11-06 13:58 | MHC.CARE ---
1100 Call to [facility] intake, spoke to Jamila who reported that the Email system is not working so she does not have the referral, she suggested calling the workroom. Call to [facility] Crisis, was reluctantly given a fax number to send the patient's information for processing. POD RN sent to [phone] Follow up call to workroom, the referral was received and processed.
--- NOTE | 2020-11-06 15:36 | PC.NURSE ---
patient took shower set up by staff. periodically wanders around unit, waits by nurses station
[2020-11-06 20:20] VITALS: BP 142/72; PULSE 93
[2020-11-06] MEDS: cloNIDine HCL 0.2 MG TABLET PO (20:20)
[2020-11-06] MEDS: traZODone HCL 100 MG TABLET PO (20:20)
[2020-11-06 20:21] VITALS: BP 142/72; PULSE 93
--- NOTE | 2020-11-06 20:36 | PC.NURSE ---
Patient calm and quiet, no distress observed/reported, medication compliant, BHN assessed the patient, disposition is ALEX F/U in the morning, will continue to monitor.
[2020-11-07 05:41] VITALS: BP 134/77; PULSE 75; RESP 18; TEMP 36.6; O2SAT 96
--- NOTE | 2020-11-07 06:08 | PC.NURSE ---
Patient slept through the night, no distress observed/reported, medication compliant, behavior at baseline, VSS, BHN disposition is ALEX f/u in the morning and get hold of patient's DDS, will continue to monitor.
--- NOTE | 2020-11-07 07:19 | PC.NURSE ---
patient appears to remain at rest at present, patient appears at no distress, respirations are even and unlabored
[2020-11-07 07:48] VITALS: BP 145/61; PULSE 84; RESP 20; TEMP 36.3; O2SAT 96
[2020-11-07] MEDS: Topiramate 25 MG TABLET 50 MG PO ×2 (08:26→20:14)
[2020-11-07 08:27] VITALS: BP 145/61; PULSE 84
[2020-11-07] MEDS: cloNIDine HCL 0.1 MG TABLET PO ×2 (08:27→20:14)
[2020-11-07] MEDS: Gabapentin 600 MG TABLET PO ×3 (08:27→20:14)
--- NOTE | 2020-11-07 09:24 | MHC.CARE ---
CARE Team spoke with N who reported they will follow up with Pts outpatient providers regarding dispo.
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
[2020-11-07 20:14] VITALS: BP 121/87; PULSE 83
[2020-11-07] MEDS: traZODone HCL 100 MG TABLET PO (20:14)
[2020-11-07 20:18] VITALS: BP 121/87; PULSE 83
[2020-11-07] MEDS: cloNIDine HCL 0.2 MG TABLET PO (20:18)
[2020-11-08 06:00] VITALS: BP 141/62; PULSE 80; RESP 18; TEMP 36.2
--- NOTE | 2020-11-08 06:26 | PC.NURSE ---
Patient slept through the night, no distress observed/reported, med compliant, appetite good, behavior at baseline, no disposition at this time, patient's mother, residential staff, BHN, and DDS are involved, VSS, will continue to monitor.
[2020-11-08 07:47] VITALS: BP 131/61; PULSE 77; RESP 16; TEMP 36.1; O2SAT 96
[2020-11-08 07:56] VITALS: BP 131/61; PULSE 77
[2020-11-08] MEDS: Topiramate 25 MG TABLET 50 MG PO ×2 (07:56→20:05)
[2020-11-08] MEDS: Gabapentin 600 MG TABLET PO ×3 (07:56→20:05)
[2020-11-08] MEDS: cloNIDine HCL 0.1 MG TABLET PO ×2 (07:56→20:06)
--- NOTE | 2020-11-08 07:59 | PC.NURSE ---
PT IS BEING CALM AND COOPERATIVE, WALKING AROUND POD. TOLERATED MEDICATIONS AND BREAKFAST
--- NOTE | 2020-11-08 09:49 | MHC.CARE ---
0930 - Spoke with N regarding the status of this pt, and to provide an update to today's POD RN. Pt is an ALEX follow up. A N Clinician will be coming out today to conduct the follow up to determine what the plan will be for pt's care. Further information still needs to be gathered from the collateral contacts to accurately formulate a decision for pt's care. This information will be gathered today. BANNER anticipates further clarity this afternoon as it relates to the care this pt will receive.
--- NOTE | 2020-11-08 13:17 | PC.NURSE ---
PT PARENTS HERE TO VISIT WITH PATIENT, PT HAS REMAINED COOPERATIVE THIS SHIFT
[2020-11-08 20:05] VITALS: BP 150/74; PULSE 84
[2020-11-08] MEDS: traZODone HCL 100 MG TABLET PO (20:05)
[2020-11-08] MEDS: cloNIDine HCL 0.2 MG TABLET PO (20:05)
[2020-11-08 20:06] VITALS: BP 150/74; PULSE 82; PULSE 84; TEMP 36.4; O2SAT 98
[2020-11-09 06:00] VITALS: BP 115/57; PULSE 87; RESP 18; TEMP 36.6; O2SAT 95
--- NOTE | 2020-11-09 06:21 | PC.NURSE ---
Patient slept through the night, no distress observed/reported, medication compliant, behavior at baseline, disposition section 12 inpatient bed search, mother who is the guardian, not happy inpatient plan, per mother she will be calling DDS to address her concern, will continue to monitor.
--- NOTE | 2020-11-09 07:17 | PC.NURSE ---
patient was at rest upon arrival to shift now patient awake asking for mother to visit. patient periodically singing, staff directed client to eat breakfast.
[2020-11-09 08:07] VITALS: BP 117/70; PULSE 95; RESP 15; TEMP 36.1; O2SAT 96
[2020-11-09 08:12] VITALS: BP 117/70; PULSE 95
[2020-11-09] MEDS: Topiramate 25 MG TABLET 50 MG PO ×2 (08:12→20:23)
[2020-11-09] MEDS: cloNIDine HCL 0.1 MG TABLET PO ×2 (08:12→20:24)
[2020-11-09] MEDS: Gabapentin 600 MG TABLET PO ×3 (08:13→20:23)
--- NOTE | 2020-11-09 17:57 | PC.NURSE ---
MILDRED called and relayed that client has been accepted to [facility]- gave information to administrative secretary in Main ED- they want patient picked up for 0930 to be delivered for 1100. address [address] [facility] [place].
[2020-11-09] MEDS: traZODone HCL 100 MG TABLET PO (20:23)
[2020-11-09 20:24] VITALS: BP 124/71; PULSE 99
[2020-11-09] MEDS: cloNIDine HCL 0.2 MG TABLET PO (20:24)
[2020-11-09] MEDS: LORazepam 1 MG TABLET PO (21:39)
--- NOTE | 2020-11-09 22:14 | PC.NURSE ---
Patient had brief behavior outburst, called mother to calm down with no effect, provider notified/ordered Ativan 1 mg/administered as ordered, will continue to monitor.
[2020-11-10 05:11] VITALS: BP 113/51; PULSE 85; RESP 18; O2SAT 97
--- NOTE | 2020-11-10 06:15 | PC.NURSE ---
Patient woke up early, stating intermittently that he wants to go home, patient one time did high pitch screaming which warranted security presence in the POD for support, patient was ushered to his room, patient was complaint, patient is leaving at 0930 for [facility], paper work all ready, will continue to monitor.
--- NOTE | 2020-11-10 07:12 | PC.NURSE ---
patient appears to be mildly restless this am, awake upon t/w's arrival to unit. patient appears in no acute distress
[2020-11-10 08:46] VITALS: BP 113/51; PULSE 85
[2020-11-10] MEDS: Gabapentin 600 MG TABLET PO ×3 (08:46→20:36)
[2020-11-10] MEDS: cloNIDine HCL 0.1 MG TABLET PO ×2 (08:46→20:35)
[2020-11-10] MEDS: Topiramate 25 MG TABLET 50 MG PO ×2 (08:46→20:35)
--- NOTE | 2020-11-10 17:16 | PC.NURSE ---
Pt in bathroom naked repeatedly stating that he wants to go home . It was explained to pt that he cannot go home at this time and that he needs to get dressed. He refuses to get dressed at this time. Offers made to have him call his mom but pt will not put on clothes in order to come out to the common area.
--- NOTE | 2020-11-10 19:02 | PC.NURSE ---
Pt now dressed and spoke with mother on phone. He is calm and cooperative.
[2020-11-10 20:13] VITALS: BP 132/72; PULSE 97; RESP 17; TEMP 36.2; O2SAT 97
[2020-11-10 20:34] VITALS: BP 132/72; PULSE 97
[2020-11-10] MEDS: cloNIDine HCL 0.2 MG TABLET PO (20:34)
[2020-11-10 20:35] VITALS: BP 132/72; PULSE 97
[2020-11-10] MEDS: traZODone HCL 100 MG TABLET PO (20:35)
[2020-11-11] MEDS: LORazepam 1 MG TABLET PO (00:44)
[2020-11-11 06:00] VITALS: RESP 16
--- NOTE | 2020-11-11 06:33 | PC.NURSE ---
Patient had hard time going to bed, constantly saying he wants to go home, needed constant redirection, provider notified/ordered Ativan 1 mg with positive effect, currently in bed sleeping, med compliant, pending admission to [facility] awaiting bed opening, will continue to monitor.
--- NOTE | 2020-11-11 07:39 | PC.NURSE ---
patient awake at this point, awaiting inpatient placement, [facility] placement failed yesterday, patient appears in no distress
[2020-11-11 08:27] VITALS: BP 132/72; PULSE 97
[2020-11-11] MEDS: cloNIDine HCL 0.1 MG TABLET PO ×2 (08:27→22:28)
[2020-11-11] MEDS: Gabapentin 600 MG TABLET PO ×3 (08:27→22:28)
[2020-11-11] MEDS: Topiramate 25 MG TABLET 50 MG PO ×2 (08:27→22:29)
[2020-11-11 10:58] VITALS: BP 122/95; PULSE 95; RESP 17; TEMP 36.1; O2SAT 98
--- NOTE | 2020-11-11 13:12 | MHC.CARE ---
CARE Team spoke with Jennifer who reported Pt is accepted to [facility] pending bed availability
[2020-11-11 22:28] VITALS: BP 122/95; PULSE 95
[2020-11-11] MEDS: traZODone HCL 100 MG TABLET PO (22:28)
[2020-11-11] MEDS: cloNIDine HCL 0.2 MG TABLET PO (22:28)
[2020-11-11 23:56] VITALS: RESP 16
--- NOTE | 2020-11-11 23:59 | PC.NURSE ---
pt is afraid of the night and tried to call his mom. mom is sleeping and did not answer the phone. pt is holding his ears and not following commands at this time. pt did go to his room with the encouragement of patricio matamoros.
[2020-11-12] MEDS: traZODone HCL 100 MG TABLET PO ×2 (00:53→20:44)
[2020-11-12 00:57] VITALS: BP 136/68; PULSE 80; TEMP 36.3; O2SAT 100
--- NOTE | 2020-11-12 00:57 | PC.NURSE ---
pt treated with prn sleeping medication with mom at the bedside. pt is in bed calm and cooperative with mom and staff.
--- NOTE | 2020-11-12 01:25 | PC.NURSE ---
pt is awake out of his room asking to go home. pt having periods of whinning and holding his head with his hands. the jyothi channel on the TV and pt brought to the bathroom. mom just happen to call in to see how the pt is doing since she left and pt was handed the phone to say good night and pt returned to his room but still comes out to look for her.
--- NOTE | 2020-11-12 08:50 | PC.NURSE ---
Morning meds pulled, pt not willing to take at this time, holding his head and repeatedly asking What happened , plan to call pt's mother for comfort to pt.
[2020-11-12] MEDS: Topiramate 25 MG TABLET 50 MG PO ×2 (09:04→20:44)
[2020-11-12] MEDS: Gabapentin 600 MG TABLET PO ×3 (09:05→20:44)
[2020-11-12 11:28] VITALS: BP 132/76; PULSE 95; RESP 17; TEMP 36.8; O2SAT 97
[2020-11-12 11:32] VITALS: BP 132/76; PULSE 95
[2020-11-12] MEDS: cloNIDine HCL 0.1 MG TABLET PO ×2 (11:32→20:44)
[2020-11-12] MEDS: ARIPiprazole 15 MG TABLET PO (11:47)
--- NOTE | 2020-11-12 12:32 | PC.NURSE ---
pt's mother Debbie ([phone]) called to see how pt is doing. pt is resting resp even and unlabored at this time.
--- NOTE | 2020-11-12 14:16 | PC.NURSE ---
pt's mom in to pod to visit, pt appears to be in generally good spirits, occasionally still stating i want to go home
[2020-11-12] MEDS: LORazepam 1 MG TABLET 2 MG PO (14:45)
--- NOTE | 2020-11-12 16:33 | PC.NURSE ---
PT agitated, crying in room, yelling I want to go home. Redirected by POD staff. Asked patient if he would like to call his mother. PT agreeable. Pt currently calmer, talking to his mother on phone. Will continue to monitor.
[2020-11-12 18:13] VITALS: BP 143/81; PULSE 99; TEMP 36.3; O2SAT 96
--- NOTE | 2020-11-12 23:36 | PC.NURSE ---
Patient resting comfortably in bed took all hs meds without difficulty awaiting bed search
[2020-11-13 06:00] VITALS: BP 123/78; PULSE 116; RESP 20; TEMP 36.6; O2SAT 94
[2020-11-13] MEDS: LORazepam 1 MG TABLET 2 MG PO ×2 (06:55→19:53)
[2020-11-13 08:06] VITALS: BP 144/70; PULSE 113; RESP 17; TEMP 36.9; O2SAT 95
[2020-11-13] MEDS: Topiramate 25 MG TABLET 50 MG PO ×2 (10:59→20:51)
[2020-11-13 11:00] VITALS: BP 144/70; PULSE 113
[2020-11-13] MEDS: cloNIDine HCL 0.1 MG TABLET PO ×2 (11:00→20:52)
[2020-11-13] MEDS: Gabapentin 600 MG TABLET PO ×3 (11:00→20:52)
[2020-11-13] MEDS: ARIPiprazole 15 MG TABLET PO (11:19)
[2020-11-13 13:20] VITALS: RESP 16
--- NOTE | 2020-11-13 13:33 | PC.NURSE ---
pt's mother came to visit. she brought a slice of pizza and a soda. pt's mother helping him to shower. pt amb (i) gait steady to br and btb.
--- NOTE | 2020-11-13 14:46 | PC.NURSE ---
Per N pt has been accepted for [facility] 11/[address] Arcadio Khalil. The number for nurse to nurse is: [phone]
[2020-11-13 20:52] VITALS: BP 151/82; PULSE 113
[2020-11-13] MEDS: traZODone HCL 100 MG TABLET PO (20:52)
[2020-11-14] MEDS: LORazepam 1 MG TABLET 2 MG PO (04:43)
[2020-11-14 04:50] VITALS: BP 126/65; PULSE 107; RESP 18; TEMP 36.6; O2SAT 96
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
--- NOTE | 2020-11-14 07:25 | PC.NURSE ---
patient appears at rest at present, appears in no distress, respirations even and unlabored
[2020-11-14 08:02] VITALS: BP 126/65; PULSE 107
[2020-11-14] MEDS: Gabapentin 600 MG TABLET PO (08:02)
[2020-11-14] MEDS: Topiramate 25 MG TABLET 50 MG PO (08:02)
[2020-11-14] MEDS: cloNIDine HCL 0.1 MG TABLET PO (08:02)
== END 2020-11-14 09:07 ==
PROVIDERS: Nurse Practitioner Family; Emergency Provider Emergency Medicine Emergency Medical Services
DX: F23 Brief psychotic disorder (principal); F84.0 Autistic disorder; R45.6 Violent behavior; F41.9 Anxiety disorder, unspecified; Z20.822 Contact with and (suspected) exposure to COVID-19
CPT/HCPCS: 36415; 80048; 80307; 81001; 82077; 85025; 87635; 99283; 99285

== ENCOUNTER 2021-02-05 19:08 | Emergency (ER) | payer MEDICARE, MEDICAID, SELFPAY ==
--- NOTE | ~2021-02-05 | XR_ITS ---
EXAMINATION: XR SHOULDER, LEFT CLINICAL INFORMATION: Pain. COMPARISON: None TECHNIQUE: AP internal rotation, AP external rotation, and scapular Y views of the left shoulder. FINDINGS: The bones and soft tissues are normal. No fracture. Glenohumeral and acromioclavicular alignment is anatomic with normal joint space. No abnormal soft tissue calcifications. XR/XR shoulder LT min 2V IMPRESSION: Unremarkable examination.
[2021-02-05 19:27] VITALS: BP 130/67; BP 184/80; PULSE 112; PULSE 127; RESP 18; TEMP 36.6; O2SAT 96; O2SAT 97; BMI 40.8
--- NOTE | 2021-02-05 19:56 | ED_ITS ---
HPI - General Adult General Chief complaint: General Medical Stated complaint: eval after unknown event Time Seen by Provider: 02/05/21 19:56 Source: family Mode of arrival: EMS History of Present Illness HPI narrative: Patient autistic brought by the family for issues with the patient's behavior patient was throwing trash can was upset not very clear what bothering him hence mother brought him here to be re-evaluated patient was pulling his left ear and rubbing his right shoulder and just stays not well no cough no fever no significant shortness of breath no nausea no vomiting no diarrhea Related Data Home Medications Medication Instructions Recorded Confirmed aripiprazole 15 mg tablet (Abilify) 15 mg PO QAM 05/29/20 11/05/20 clonidine HCl 0.1 mg tablet 1 tab PO BID 05/29/20 11/05/20 clonidine HCl 0.2 mg tablet 0.2 mg PO BEDTIME PRN 05/29/20 11/05/20 gabapentin 600 mg tablet 600 mg PO TID 05/29/20 11/05/20 topiramate 50 mg tablet 50 mg PO BID 05/29/20 11/05/20 trazodone 100 mg tablet 100 mg PO BEDTIME PRN 05/29/20 11/05/20 trazodone 100 mg tablet 100 mg PO BEDTIME 11/05/20 11/05/20 Allergies Allergy/AdvReac Type Severity Reaction Status Date / Time amoxicillin [AMOXICILLIN] Allergy Intermediate RASH Verified 05/31/20 11:13 Review of Systems Review of Systems: Yes Unobtainable due to mental status PMFSH Past Medical History Medical History Autism Social History Social History Advance Directives: No Advance Directives Information Provided: No Physical Exam Vital Signs: Vital Signs: Last Vital Signs Temp 98 F 02/05/21 19:27 Pulse 112 H 02/05/21 19:27 Resp 18 02/05/21 19:27 BP 130/67 02/05/21 19:27 Pulse Ox 96 02/05/21 19:27 Body Mass Index 40.8 Appearance: Alert. Awake no acute distress. Eyes: PERRLA, No Nystagmus no pallor icterus ENT: Pharynx normal. Oral Mucosa moist Neck: Normal inspection. Neck supple. CVS: Normal heart rate and rhythm. Pulses normal. Respiratory: No respiratory distress. Equal air entry bilateral, no wheezing/rales/rhonchi Abdomen: Soft and nontender. Bowel sounds are present, no mass palpable, no CVA tenderness Skin: Skin warm and dry. Normal skin color. Normal skin turgor. Extremities: No lower extremity edema. No calf tenderness shoulder control normal good range of movement Neuro: Alert and awake No motor deficit. Medical Decision Making MDM Narrative Medical decision making narrative: Patient with behavioral problem lab workup stable no acute metabolic abnormality for behavior problems will discharge patient back to nursing home Lab Data Lab results reviewed: Yes I reviewed the patient's lab results. Result diagrams: 02/05/21 20:42 02/05/21 20:42 Labs: Lab Results 02/05/21 02/05/21 02/05/21 Range/Units 20:42 20:42 20:42 WBC 12.1 H (4.8-10.8) X10*3/uL RBC 5.68 (4.60-5.80) X10*6/uL Hgb 17.1 (14.0-18.0) g/dl Hct 48.7 (42.0-52.0) % MCV 85.7 (80.0-98.0) fL MCH 30.1 (27.0-33.0) pg MCHC 35.1 (31.0-36.0) g/dl RDW 13.0 (11.0-16.0) % Plt Count 312 (160-400) X10*3/uL MPV 9.2 L (9.4-12.4) fL Immature Gran % (Auto) 0.2 (0.0-0.4) % Neut % (Auto) 71.3 (45-73) % Lymph % (Auto) 21.7 (20-40) % [place] % (Auto) 6.2 (2-11) % Eos % (Auto) 0.3 (0-4) % Baso % (Auto) 0.3 (0-2) % Lymph # (Auto) 2.6 (1.2-4.9) X10*3/uL [place] # (Auto) 0.8 (0.1-1.2) X10*3/uL Eos # (Auto) 0.0 (0.0-0.4) X10*3/uL Baso # (Auto) 0.0 (0.0-0.2) X10*3/uL Abs Immat Gran (auto) 0.02 (0.00-0.03) X10*3/uL Absolute Neuts (auto) 8.63 H (2.0-8.3) x10*3/uL Absolute Nucleated RBC 0.000 (0.0-0.012) X10*3/uL Nucleated RBC % (auto) 0.0 (0.0-0.2) /100WBC Sodium 139 (135-145) mmol/L Potassium 3.6 (3.3-5.1) mmol/L Chloride 110 H (96-108) mmol/L Carbon Dioxide 21 L (22-29) mmol/L Anion Gap 12 (12-20) BUN 12 (9-16) mg/dL Creatinine 1.17 (0.5-1.4) mg/dL Estim Creat Clear Calc 144.7 Estimated GFR > 60 Random Glucose 130 H D (60-115) mg/dL Calcium 9.6 (8.4-10.2) mg/dL Total Bilirubin 0.5 (0.0-1.0) mg/dL Direct Bilirubin 0.2 (0.0-0.5) mg/dL AST 14 D (5-37) U/L ALT 29 (0-40) U/L Alkaline Phosphatase 75 D (39-117) U/L Total Protein 7.4 (6.5-8.0) g/dL Albumin 4.7 (3.5-5.0) g/dL Urine Color Urine Appearance Urine pH (5.0-8.0) Ur Specific [place] (1.005-1.025) Urine Protein (NEG-TRACE) MG/DL Urine Glucose (UA) (NEG) MG/DL Urine Ketones (NEG) MG/DL Urine Blood (NEG) Urine Nitrite (NEG) Ur Leukocyte Esterase (NEG) COVID-19 (IRVING) (Negative) COVID-19 Clin Com S. pyogenes GrpA MAXIME Negative (Negative) 02/05/21 02/05/21 Range/Units 20:42 21:13 WBC (4.8-10.8) X10*3/uL RBC (4.60-5.80) X10*6/uL Hgb (14.0-18.0) g/dl Hct (42.0-52.0) % MCV (80.0-98.0) fL MCH (27.0-33.0) pg MCHC (31.0-36.0) g/dl RDW (11.0-16.0) % Plt Count (160-400) X10*3/uL MPV (9.4-12.4) fL Immature Gran % (Auto) (0.0-0.4) % Neut % (Auto) (45-73) % Lymph % (Auto) (20-40) % [place] % (Auto) (2-11) % Eos % (Auto) (0-4) % Baso % (Auto) (0-2) % Lymph # (Auto) (1.2-4.9) X10*3/uL [place] # (Auto) (0.1-1.2) X10*3/uL Eos # (Auto) (0.0-0.4) X10*3/uL Baso # (Auto) (0.0-0.2) X10*3/uL Abs Immat Gran (auto) (0.00-0.03) X10*3/uL Absolute Neuts (auto) (2.0-8.3) x10*3/uL Absolute Nucleated RBC (0.0-0.012) X10*3/uL Nucleated RBC % (auto) (0.0-0.2) /100WBC Sodium (135-145) mmol/L Potassium (3.3-5.1) mmol/L Chloride (96-108) mmol/L Carbon Dioxide (22-29) mmol/L Anion Gap (12-20) BUN (9-16) mg/dL Creatinine (0.5-1.4) mg/dL Estim Creat Clear Calc Estimated GFR Random Glucose (60-115) mg/dL Calcium (8.4-10.2) mg/dL Total Bilirubin (0.0-1.0) mg/dL Direct Bilirubin (0.0-0.5) mg/dL AST (5-37) U/L ALT (0-40) U/L Alkaline Phosphatase (39-117) U/L Total Protein (6.5-8.0) g/dL Albumin (3.5-5.0) g/dL Urine Color YELLOW Urine Appearance CLEAR Urine pH 6.0 (5.0-8.0) Ur Specific [place] 1.025 (1.005-1.025) Urine Protein NEG (NEG-TRACE) MG/DL Urine Glucose (UA) NEG (NEG) MG/DL Urine Ketones NEG (NEG) MG/DL Urine Blood NEG (NEG) Urine Nitrite NEG (NEG) Ur Leukocyte Esterase NEG (NEG) COVID-19 (IRVING) Negative (Negative) COVID-19 Clin Com See Note S. pyogenes GrpA MAXIME (Negative) Discharge Plan Discharge Clinical Impression: Autism Patient Disposition: Home, Self-Care Instructions: Autism Spectrum Disorder (DC) Additional Instructions: Continue your medications and follow up with your therapist as needed Report to the ER/PCP if high-grade fever Prescriptions: No Action clonidine HCl 0.1 mg tablet 1 tab PO BID RF: 0 gabapentin 600 mg tablet 600 mg PO TID RF: 0 clonidine HCl 0.2 mg tablet 0.2 mg PO BEDTIME PRN (Reason: Insomnia) RF: 0 trazodone 100 mg tablet 100 mg PO BEDTIME PRN (Reason: Sleep) RF: 0 aripiprazole [Abilify] 15 mg tablet 15 mg PO QAM RF: 0 topiramate 50 mg tablet 50 mg PO BID RF: 0 trazodone 100 mg tablet 100 mg PO BEDTIME RF: 0 Discharge Date/Time: 02/05/21 21:46
[2021-02-05 20:46] LABS: MANUAL DIFF FLAG NO
[2021-02-05 20:48] LABS: Basophils Percent Auto 0.3 % (0-2); Eosinophils Percent Auto 0.3 % (0-4); Hematocrit 48.7 % (42.0-52.0); Hemoglobin 17.1 g/dl (14.0-18.0); Imm Gran Abs Auto 0.02 X10*3/uL (0.00-0.03); Imm Gran Pct Auto 0.2 % (0.0-0.4); Lymphocytes Absolute Auto 2.6 X10*3/uL (1.2-4.9); Lymphocytes Percent Auto 21.7 % (20-40); Mean Corpuscular HGB Conc 35.1 g/dl (31.0-36.0); Mean Corpuscular Hemoglobin 30.1 pg (27.0-33.0); Mean Corpuscular Volume 85.7 fL (80.0-98.0); Mean Platelet Volume 9.2 fL (9.4-12.4); Monocytes Absolute Auto 0.8 X10*3/uL (0.1-1.2); Monocytes Percent Auto 6.2 % (2-11); Neutrophils Absolute Auto 8.63 x10*3/uL (2.0-8.3); Neutrophils Percent Auto 71.3 % (45-73); Platelet Count 312 X10*3/uL (160-400); Red Blood Count 5.68 X10*6/uL (4.60-5.80); White Blood Count 12.1 X10*3/uL (4.8-10.8)
[2021-02-05 21:00] LABS: IDNOW Serial# 9DD0AD1C; Strep A Nucleic Acid Negative (Negative)
[2021-02-05 21:04] LABS: COVID-19 Test Negative (Negative)
[2021-02-05 21:06] LABS: Alanine Aminotransferase 29 U/L (0-40); Albumin Level 4.7 g/dL (3.5-5.0); Alkaline Phosphatase 75 U/L (39-117); Anion Gap 12 (12-20); Aspartate Amino Transferase 14 U/L (5-37); Bilirubin Direct 0.2 mg/dL (0.0-0.5); Bilirubin Total 0.5 mg/dL (0.0-1.0); Blood Urea Nitrogen 12 mg/dL (9-16); Calcium 9.6 mg/dL (8.4-10.2); Carbon Dioxide 21 mmol/L (22-29); Chloride 110 mmol/L (96-108); Creatinine Clr Calc Pharmacy 144.7; Estimated Glomerular Filt Rate > 60; Glucose Random 130 mg/dL (60-115); Potassium 3.6 mmol/L (3.3-5.1); Sodium 139 mmol/L (135-145); Total Protein 7.4 g/dL (6.5-8.0)
[2021-02-05 21:22] LABS: Appearance Urine CLEAR; Color Urine YELLOW; Glucose Urine UA NEG (NEG); Leukocyte Esterase Urine NEG (NEG); Nitrite Urine NEG (NEG); Specific Gravity - Urine 1.025 (1.005-1.025); Urine Blood NEG (NEG); Urine Ketones NEG (NEG); Urine Protein NEG (NEG-TRACE)
== END 2021-02-05 21:46 | disposition home or self-care (01) ==
PROVIDERS: Emergency Provider Internal Medicine
DX: F84.0 Autistic disorder (principal); H92.02 Otalgia, left ear; Z20.822 Contact with and (suspected) exposure to COVID-19
CPT/HCPCS: 36415; 73030; 80048; 80076; 81003; 85025; 87635; 87651; 99283

== ENCOUNTER 2021-02-21 16:39 | Outpatient (REF) | payer MEDICARE, MEDICAID, SELFPAY | END 2021-02-21 16:40 | disposition home or self-care (01) | LOC: HO.LNP 16:39 | PROVIDERS: Visit Provider Physician Assistant Medical | DX: Z20.822 Contact with and (suspected) exposure to COVID-19 (principal); J06.9 Acute upper respiratory infection, unspecified | CPT/HCPCS: U0003; U0005 ==

== ENCOUNTER 2021-06-24 17:29 | Emergency (ER) | payer MEDICARE, MEDICAID, SELFPAY ==
--- NOTE | 2021-06-24 17:36 | ED.PSYCH ---
HPI - Psych General Chief Complaint: General Medical Stated Complaint: CRISIS Time Seen by Provider: 06/24/21 17:35 Source: EMS Mode of arrival: EMS Limitations: other (Cognitive impairment.) History of Present Illness HPI Narrative: This is a 21-year-old male past medical history and autism coming from a senior living for aggressive behavior. According to EMS patient asked for a snack at the senior living, senior living staff did not give him a snack, patient became aggressive towards staff members and started punching things. According to EMS he was very agitated while at the senior living however he was cooperative for them. Patient is not answering any questions. Denies any medical complaints. He is answering my questions with head nods. History of same: Yes Relieving factors: none Exacerbating factors: none Associated psychiatric symptoms: none Treatments prior to arrival: none Related Data Home Medications Medication Instructions Recorded Confirmed clonidine HCl 0.1 mg tablet 1 tab PO BID 05/29/20 11/05/20 clonidine HCl 0.2 mg tablet 0.2 mg PO BEDTIME PRN 05/29/20 11/05/20 gabapentin 600 mg tablet 600 mg PO TID 05/29/20 11/05/20 topiramate 50 mg tablet 50 mg PO BID 05/29/20 11/05/20 trazodone 100 mg tablet 100 mg PO BEDTIME PRN 05/29/20 11/05/20 trazodone 100 mg tablet 100 mg PO BEDTIME 11/05/20 11/05/20 risperidone 3 mg tablet 3 mg PO BID 05/19/21 topiramate 100 mg tablet 100 mg PO DAILY 05/19/21 Allergies Allergy/AdvReac Type Severity Reaction Status Date / Time amoxicillin [AMOXICILLIN] Allergy Intermediate RASH Verified 05/19/21 13:57 Review of Systems Review of Systems: Yes Unobtainable due to mental status PMFSH Past Medical History Attestation statement: The following information was validated with the patient. Source: old records reviewed and nursing notes reviewed Medical History Autism Social History Social History Patient Tobacco Use Status: Never used Tobacco Advance Directives: No Advance Directives Information Provided: No Physical Exam Vital Signs: Vital Signs: Last Vital Signs Temp 98.3 F 06/24/21 18:05 Pulse 74 06/24/21 22:08 Resp 16 06/24/21 22:08 BP 112/61 06/24/21 22:08 Pulse Ox 97 06/24/21 22:08 BMI result Body Mass Index 42.7 VSS Appearance: Alert.? Oriented X3.? No acute distress.? Head: Normocephalic, atraumatic, no step-offs or deformities Eyes: Pupils equal, round and reactive to light.? ENT: Pharynx normal.? Neck: Normal inspection.? Neck supple.? CVS: Normal heart rate and rhythm.? Pulses normal.? Respiratory: No respiratory distress.? Breath sounds normal.? Abdomen: Soft and nontender.? Skin: Skin warm and dry.? Normal skin color.? Normal skin turgor.? Extremities: No lower extremity edema.? No calf ttp. 5/5 strength to bilateral upper and lower extremities Back: No midline tenderness, no C-spine tenderness, full range of motion, no CVA tenderness bilaterally Neuro: Oriented X 3.? No motor deficit.? No sensory deficit. CN 2-12 intact Course Reevaluation(s) Reevaluation #1: Patient has been common cooperative for us. No need for medications. CBC within normal limits. Chemistry with a slightly low potassium. Oral potassium was given. Ethanol negative. COVID pending. Urine pending. Urine toxicology pending. Plan at this time is to place patient into physician observation, at time that observation was started patient, cooperative no acute distress. Pending behavioral health consult. Vital signs stable. Will continue to monitor. Time: 02:29 MDM - Psych MDM Narrative Medical decision making narrative: 1737 21 yo m presents from senior living with aggressive behavior. He has been common cooperative for us. He is nodding his head to answer questions but not speaking. This appears to be patient's baseline from report Physical exam benign. Neuro nonfocal. Patient following commands. Plan at this time is medical clearance. Medical Records Attestation: I reviewed the patient's medical records. Lab Data Attestation: I reviewed the patient's lab results. Result diagrams: 06/24/21 18:56 06/24/21 18:56 Labs: Lab Results 06/24/21 06/24/21 06/24/21 Range/Units 18:56 18:56 18:56 WBC 9.1 (4.8-10.8) X10*3/uL RBC 5.47 (4.60-5.80) X10*6/uL Hgb 16.3 (14.0-18.0) g/dl Hct 47.0 (42.0-52.0) % MCV 85.9 (80.0-98.0) fL MCH 29.8 (27.0-33.0) pg MCHC 34.7 (31.0-36.0) g/dl RDW 12.3 (11.0-16.0) % Plt Count 306 (160-400) X10*3/uL MPV 9.3 L (9.4-12.4) fL Immature Gran % (Auto) 0.3 (0.0-0.4) % Neut % (Auto) 60.9 (45-73) % Lymph % (Auto) 28.6 (20-40) % [place] % (Auto) 8.7 (2-11) % Eos % (Auto) 1.0 (0-4) % Baso % (Auto) 0.5 (0-2) % Lymph # (Auto) 2.6 (1.2-4.9) X10*3/uL [place] # (Auto) 0.8 (0.1-1.2) X10*3/uL Eos # (Auto) 0.1 (0.0-0.4) X10*3/uL Baso # (Auto) 0.1 (0.0-0.2) X10*3/uL Abs Immat Gran (auto) 0.03 (0.00-0.03) X10*3/uL Absolute Neuts (auto) 5.6 (2.0-8.3) x10*3/uL Absolute Nucleated RBC 0.000 (0.0-0.012) X10*3/uL Nucleated RBC % (auto) 0.0 (0.0-0.2) /100WBC Sodium 140 (135-145) mmol/L Potassium 2.9 L (3.3-5.1) mmol/L Chloride 108 (96-108) mmol/L Carbon Dioxide 22 (22-29) mmol/L Anion Gap 13 (12-20) BUN 15 (9-16) mg/dL Creatinine 0.97 (0.5-1.4) mg/dL Estim Creat Clear Calc 173.8 Estimated GFR > 60 Random Glucose 131 H (60-115) mg/dL Calcium 10.1 (8.4-10.2) mg/dL Ethyl Alcohol < 10 mg/dL Critical Care Time Critical Care Time Critical Care Time: No Discharge Plan Discharge Clinical Impression: Conduct disorder, Autism Patient Disposition: Still a Patient Prescriptions: No Action clonidine HCl 0.1 mg tablet 1 tab PO BID 0RF gabapentin 600 mg tablet 600 mg PO TID 0RF clonidine HCl 0.2 mg tablet 0.2 mg PO BEDTIME PRN (Reason: Insomnia) 0RF trazodone 100 mg tablet 100 mg PO BEDTIME PRN (Reason: Sleep) 0RF topiramate 50 mg tablet 50 mg PO BID 0RF trazodone 100 mg tablet 100 mg PO BEDTIME 0RF risperidone 3 mg tablet 3 mg PO BID 0RF topiramate 100 mg tablet 100 mg PO DAILY 0RF
[2021-06-24 17:42] VITALS: BP 119/58; PULSE 110; RESP 18; TEMP 36.8; O2SAT 99; BMI 42.7
[2021-06-24 18:05] VITALS: BP 115/55; PULSE 101; RESP 16; TEMP 36.8; O2SAT 95
[2021-06-24 19:06] LABS: MANUAL DIFF FLAG NO
[2021-06-24 19:09] LABS: Basophils Absolute Auto 0.1 X10*3/uL (0.0-0.2); Basophils Percent Auto 0.5 % (0-2); Eosinophils Absolute Auto 0.1 X10*3/uL (0.0-0.4); Hemoglobin 16.3 g/dl (14.0-18.0); Imm Gran Abs Auto 0.03 X10*3/uL (0.00-0.03); Imm Gran Pct Auto 0.3 % (0.0-0.4); Lymphocytes Absolute Auto 2.6 X10*3/uL (1.2-4.9); Lymphocytes Percent Auto 28.6 % (20-40); Mean Corpuscular HGB Conc 34.7 g/dl (31.0-36.0); Mean Corpuscular Hemoglobin 29.8 pg (27.0-33.0); Mean Corpuscular Volume 85.9 fL (80.0-98.0); Mean Platelet Volume 9.3 fL (9.4-12.4); Monocytes Absolute Auto 0.8 X10*3/uL (0.1-1.2); Monocytes Percent Auto 8.7 % (2-11); Neutrophils Absolute Auto 5.6 x10*3/uL (2.0-8.3); Neutrophils Percent Auto 60.9 % (45-73); Platelet Count 306 X10*3/uL (160-400); Red Blood Count 5.47 X10*6/uL (4.60-5.80); Red Cell Distribution Width 12.3 % (11.0-16.0); White Blood Count 9.1 X10*3/uL (4.8-10.8)
[2021-06-24 19:20] LABS: Ethanol < 10 mg/dL
[2021-06-24 19:24] LABS: Anion Gap 13 (12-20); Blood Urea Nitrogen 15 mg/dL (9-16); Calcium 10.1 mg/dL (8.4-10.2); Carbon Dioxide 22 mmol/L (22-29); Chloride 108 mmol/L (96-108); Creatinine Clr Calc Pharmacy 173.8; Estimated Glomerular Filt Rate > 60; Glucose Random 131 mg/dL (60-115); Potassium 2.9 mmol/L (3.3-5.1); Sodium 140 mmol/L (135-145)
[2021-06-24] MEDS: Potassium Chloride ER 20 MEQ TAB.ER.PRT 40 MEQ PO (22:05)
[2021-06-24 22:08] VITALS: BP 112/61; PULSE 74; RESP 16; O2SAT 97
[2021-06-25 03:12] VITALS: BP 116/62; PULSE 74; RESP 14; TEMP 36.4; O2SAT 97
[2021-06-25 03:18] LABS: Appearance Urine CLEAR; Color Urine YELLOW; Glucose Urine UA NEG (NEG); Leukocyte Esterase Urine NEG (NEG); Nitrite Urine NEG (NEG); Urine Blood NEG (NEG); Urine Ketones NEG (NEG); Urine Protein NEG (NEG-TRACE)
[2021-06-25 03:38] LABS: Amphetamine Screen Urine Not Detected (Not Detect); Barbiturates, Urine Not Detected (Not Detect); Benzodiazepines Screen Urine Not Detected (Not Detect); Cannabinoid Screen Urine Not Detected (Not Detect); Cocaine Screen Urine Not Detected (Not Detect); Fentanyl, urine Not Detected (Not Detect); Opiate Screen Urine Not Detected (Not Detect); Phencyclidine Screen Urine Not Detected (Not Detect)
--- NOTE | 2021-06-25 04:30 | PC.NURSE ---
Assumed care of pt Pt assisted to bathroom Pt back on stretcher NAD Will continue to monitor
[2021-06-25 05:34] LABS: COVID-19 Test Negative (Negative)
[2021-06-25 10:54] LABS: Anion Gap 12 (12-20); Blood Urea Nitrogen 10 mg/dL (9-16); Calcium 10.5 mg/dL (8.4-10.2); Carbon Dioxide 25 mmol/L (22-29); Chloride 105 mmol/L (96-108); Creatinine Clr Calc Pharmacy 189.4; Estimated Glomerular Filt Rate > 60; Glucose Random 113 mg/dL (60-115); Potassium 4.3 mmol/L (3.3-5.1); Sodium 138 mmol/L (135-145)
[2021-06-25 10:59] VITALS: BP 153/89; PULSE 95; RESP 14; O2SAT 100
[2021-06-25] MEDS: risperiDONE 3 MG TABLET PO ×2 (11:00→15:43)
[2021-06-25] MEDS: Gabapentin 600 MG TABLET PO ×2 (11:00→15:43)
[2021-06-25] MEDS: cloNIDine HCL 0.1 MG TABLET PO (11:00)
[2021-06-25] MEDS: Topiramate 25 MG TABLET 50 MG PO (14:42)
== END 2021-06-25 16:12 | disposition home or self-care (01) ==
PROVIDERS: Physician Assistant; Physician Assistant Medical; Emergency Provider Emergency Medicine
DX: F91.9 Conduct disorder, unspecified (principal); F84.0 Autistic disorder; Z20.822 Contact with and (suspected) exposure to COVID-19; Z79.899 Other long term (current) drug therapy
CPT/HCPCS: 36415; 80048; 80307; 81003; 82077; 85025; 87635; 99284

== ENCOUNTER 2021-07-27 07:10 | Outpatient (REF) | payer MEDICARE, MEDICAID, SELFPAY ==
[2021-07-27 07:33] LABS: MANUAL DIFF FLAG NO
[2021-07-27 08:38] LABS: Basophils Absolute Auto 0.1 X10*3/uL (0.0-0.2); Basophils Percent Auto 0.6 % (0-2); Eosinophils Absolute Auto 0.2 X10*3/uL (0.0-0.4); Eosinophils Percent Auto 1.9 % (0-4); Hematocrit 47.6 % (42.0-52.0); Hemoglobin 16.5 g/dl (14.0-18.0); Imm Gran Abs Auto 0.01 X10*3/uL (0.00-0.03); Imm Gran Pct Auto 0.1 % (0.0-0.4); Lymphocytes Absolute Auto 3.1 X10*3/uL (1.2-4.9); Lymphocytes Percent Auto 38.8 % (20-40); Mean Corpuscular HGB Conc 34.7 g/dl (31.0-36.0); Mean Corpuscular Hemoglobin 29.7 pg (27.0-33.0); Mean Corpuscular Volume 85.8 fL (80.0-98.0); Mean Platelet Volume 9.5 fL (9.4-12.4); Monocytes Absolute Auto 0.7 X10*3/uL (0.1-1.2); Monocytes Percent Auto 8.3 % (2-11); Neutrophils Percent Auto 50.3 % (45-73); Platelet Count 299 X10*3/uL (160-400); Red Blood Count 5.55 X10*6/uL (4.60-5.80); Red Cell Distribution Width 13.3 % (11.0-16.0)
[2021-07-27 08:55] LABS: Estimated Average Glucose 94 mg/dL; Hemoglobin A1c % 4.9 %
[2021-07-27 09:19] LABS: Alanine Aminotransferase 22 U/L (0-40); Albumin Level 4.5 g/dL (3.5-5.0); Alkaline Phosphatase 77 U/L (39-117); Anion Gap 12 (12-20); Aspartate Amino Transferase 12 U/L (5-37); Bilirubin Total 0.2 mg/dL (0.0-1.0); Blood Urea Nitrogen 11 mg/dL (9-16); Calcium 9.8 mg/dL (8.4-10.2); Carbon Dioxide 24 mmol/L (22-29); Chloride 108 mmol/L (96-108); Cholesterol 207 mg/dL; Estimated Glomerular Filt Rate > 60; Glucose Fasting 87 mg/dL (60-99); HDL Cholesterol 40 mg/dL; LDL Cholesterol Calculated 144 mg/dl; Potassium 4.2 mmol/L (3.3-5.1); Sodium 140 mmol/L (135-145); Total Protein 7.5 g/dL (6.5-8.0); Triglycerides 119 mg/dL
[2021-07-27 09:27] LABS: TSH reflex Free T4 1.24 uIU/mL (0.32-4.0); Vitamin D 25-OH Total 11.9 ng/mL (>30)
[2021-07-27 10:04] LABS: Appearance Urine CLEAR; Color Urine YELLOW; Glucose Urine UA NEG (NEG); Leukocyte Esterase Urine NEG (NEG); Nitrite Urine NEG (NEG); PH 5.5 (5.0-8.0); Specific Gravity - Urine >= 1.030 (1.005-1.025); Urine Blood NEG (NEG); Urine Ketones NEG (NEG); Urine Protein NEG (NEG-TRACE)
== END 2021-07-27 07:11 | disposition home or self-care (01) ==
LOC: HO.LAB 07:10
PROVIDERS: PCP Internal Medicine; Visit Provider Internal Medicine
DX: Z00.00 Encounter for general adult medical examination without abnormal findings (principal); R35.0 Frequency of micturition; R73.9 Hyperglycemia, unspecified; E55.9 Vitamin D deficiency, unspecified
CPT/HCPCS: 36415; 80053; 80061; 81003; 82306; 83036; 84443; 85025

== ENCOUNTER 2022-05-07 15:31 | Outpatient (REF) | payer MEDICARE, MEDICAID, SELFPAY ==
[2022-05-07 16:12] LABS: Appearance Urine Cloudy; Color Urine Yellow; Glucose Urine UA Negative (Negative); Leukocyte Esterase Urine Negative (Negative); Nitrite Urine Negative (Negative); Urine Blood Negative (Negative); Urine Ketones Negative (Negative); Urine Protein Negative (Neg-Trace)
== END 2022-05-07 15:32 | disposition home or self-care (01) ==
LOC: HO.LNP 15:31
PROVIDERS: Visit Provider Internal Medicine
DX: R30.0 Dysuria (principal)
CPT/HCPCS: 81003

== ENCOUNTER 2022-11-06 11:29 | Outpatient (REF) | payer MEDICARE, MEDICAID, SELFPAY ==
[2022-11-06 11:54] LABS: MANUAL DIFF FLAG NO
[2022-11-06 12:44] LABS: Basophils Percent Auto 0.4 % (0-2); Eosinophils Absolute Auto 0.1 X10*3/uL (0.0-0.4); Hematocrit 47.5 % (42.0-52.0); Hemoglobin 16.2 g/dl (14.0-18.0); Imm Gran Abs Auto 0.07 X10*3/uL (0.00-0.03); Imm Gran Pct Auto 0.7 % (0.0-0.4); Lymphocytes Absolute Auto 3.6 X10*3/uL (1.2-4.9); Lymphocytes Percent Auto 37.3 % (20-40); Mean Corpuscular HGB Conc 34.1 g/dl (31.0-36.0); Mean Corpuscular Hemoglobin 29.7 pg (27.0-33.0); Mean Platelet Volume 9.4 fL (9.4-12.4); Monocytes Absolute Auto 0.9 X10*3/uL (0.1-1.2); Monocytes Percent Auto 9.1 % (2-11); Neutrophils Absolute Auto 4.9 x10*3/uL (2.0-8.3); Neutrophils Percent Auto 51.5 % (45-73); Platelet Count 323 X10*3/uL (160-400); Red Blood Count 5.46 X10*6/uL (4.60-5.80); Red Cell Distribution Width 12.7 % (11.0-16.0); White Blood Count 9.5 X10*3/uL (4.8-10.8)
[2022-11-06 13:55] LABS: Alanine Aminotransferase 25 U/L (0-40); Albumin Level 4.6 g/dL (3.5-5.0); Alkaline Phosphatase 84 U/L (39-117); Anion Gap 15 (12-20); Aspartate Amino Transferase 16 U/L (5-37); Bilirubin Total 0.4 mg/dL (0.0-1.0); Blood Urea Nitrogen 10 mg/dL (9-16); Calcium 9.9 mg/dL (8.4-10.2); Carbon Dioxide 22 mmol/L (22-29); Chloride 106 mmol/L (96-108); Cholesterol 214 mg/dL; Estimated Glomerular Filt Rate > 60; Glucose Fasting 89 mg/dL (60-99); HDL Cholesterol 34 mg/dL; LDL Cholesterol Calculated 135 mg/dl; Potassium 3.7 mmol/L (3.3-5.1); Sodium 139 mmol/L (135-145); Total Protein 7.7 g/dL (6.5-8.0); Triglycerides 228 mg/dL
[2022-11-06 14:14] LABS: TSH reflex Free T4 0.68 uIU/mL (0.32-4.0); Vitamin D 25-OH Total 25.9 ng/mL (>30)
[2022-11-06 14:52] LABS: Appearance Urine Cloudy; Color Urine Yellow; Glucose Urine UA Negative (Negative); Leukocyte Esterase Urine Negative (Negative); Nitrite Urine Negative (Negative); PH 5.5 (5.0-9.0); Urine Blood Negative (Negative); Urine Ketones Negative (Negative); Urine Protein Trace mg/dL (Neg-Trace)
== END 2022-11-06 11:30 | disposition home or self-care (01) ==
LOC: HO.LAB 11:29
PROVIDERS: PCP Internal Medicine; Visit Provider Internal Medicine
DX: Z00.00 Encounter for general adult medical examination without abnormal findings (principal); E78.00 Pure hypercholesterolemia, unspecified; R30.0 Dysuria; E55.9 Vitamin D deficiency, unspecified
CPT/HCPCS: 36415; 80053; 80061; 81003; 82306; 84443; 85025

== ENCOUNTER 2023-09-06 12:50 | Outpatient (AMB) | payer MEDICARE, MEDICAID, SELFPAY ==
[2023-09-06 12:51] VITALS: BP 110/62; PULSE 65; O2SAT 98; BMI 43.6
--- NOTE | 2023-09-06 12:51 | MHC.PC.OV ---
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 per policy Accompanied by: Self / Same As Patient Allergies amoxicillin [AMOXICILLIN] Allergy (Intermediate, Verified 09/06/23 13:36) RASH Medication List - Last Reconciled 09/06/23 by Kojo Rubin MD cholecalciferol (vitamin D3) 50 mcg PO DAILY 90 days clonidine HCl 0.2 mg PO BEDTIME clonidine HCl 0.1 mg PO BID gabapentin 600 mg PO TID nystatin (Nystop) 1 appl topical BID 10 days risperidone 6 mg PO DAILY topiramate 100 mg PO BEDTIME topiramate 50 mg PO BID trazodone 200 mg PO BEDTIME Tobacco use date assessed: 09/06/23 Dental Screening Dental Screen Date: 09/06/23 Did you have a dental visit in the last 12 months?: Yes Did you have a dental problem in the last 6 months where you did not have access to dental care?: No Was dental information given to patient?: Patient has dentist HPI pe HPI Details Patient comes in today for his annual physical examination - he is accompanied by staff from his residential home Staff states that patient is doing okay overall and does not have any acute issues lately Patient denies any headaches or dizziness Denies any chest pains, no SOB No nausea/vomiting, no abdominal pain No change in bowel habits noted He denies any acute urinary symptoms [facility] Medical History (Updated 09/06/23 @ 13:59 by Kojo Rubin MD) Insomnia Anxiety Social communication disorder OCD (obsessive compulsive disorder) Intellectual disability Pure hypercholesterolemia Vitamin D deficiency Morbid obesity with BMI of 40.0-44.9, adult Autism Surgical History No pertinent past surgical history Family History Mother No problems noted. Father No problems noted. Social History Housing: Other Housing Other:: Residential Home Alcohol intake: never Patient Tobacco Use Status: Never used Tobacco e-Cigarette/Vaping Use: Never Used Second Hand Smoke Exposure: No service: No Current occupational status: disabled Cognitive needs: Yes Hearing needs: No Vision needs: Yes Questionnaire PHQ-9 Over the last 2 weeks, how often have you been bothered by any of the following problems? 1. Little interest or pleasure in doing things: not at all 2. Feeling down, depressed, or hopeless: not at all 3. Trouble falling or staying asleep, or sleeping too much: not at all 4. Feeling tired or having little energy: not at all 5. Poor appetite or overeating: not at all 6. Feeling bad about yourself - or that you are a failure or have let yourself or your family down: not at all 7. Trouble concentrating on things, such as reading the newspaper or watching television: not at all 8. Moving or speaking so slowly that other people could have noticed. Or the opposite - being so fidgety or restless that you have been moving around a lot more than usual: not at all 9. Thoughts that you would be better off or of hurting yourself in some way: not at all Total score: 0 Depression Screening Interpretation: Negative Depression Screening Done: Yes 80513 - PHQ-9 Billing: Yes Source: Developed by Drs. Vicente Patel, Debbie Su, Bill Meadows and colleagues, with an educational kwan from [employer]. Thrive Questionnaire Date Thrive assessed: 09/06/23 I am a: Patient What is your living situation today?: I have a steady place to live Within the past 12 months, did the food you bought not last and you didn't have the money to get more?: Never true Within the past 12 months, did you worry whether your food would run out before you got money to buy more?: Never true Do you have trouble paying for medicines?: No Do you have trouble getting transportation to medical appointments?: No Do you have trouble paying your heating and electricity bill?: No Do you have trouble taking care of your child, family member or friend?: No Do you have trouble with day-to-day activities such as bathing, preparing meals, shopping, managing finances, etc.?: No Are you currently unemployed and looking for a job?: No Are you interested in more education?: No Please select the resources that you would like help with: None Currently or been in a relationship where the following occur: no concerns reported THRIVE Score: 0 AUDIT C Alcohol Use Questionnaire (AUDIT-C) 1. How often do you have a drink containing alcohol?: Never 3. How often do you have six or more drinks on one occasion?: Never Total Score: 0 Score Reviewed/Action Taken: Yes ARMANDO-7 AMB Questionnaire ARMANDO-7 Date ARMANDO - 7 assessed: 09/06/23 Feeling nervous, anxious, or on edge: 3 = Nearly every day Not being able to stop or control worryin = Several days Worrying too much about different things: 0 = Not at all Trouble relaxin = Not at all Being so restless that it is hard to sit still: 0 = Not at all Becoming easily annoyed or irritable: 0 = Not at all Feeling afraid as if something awful might happen: 0 = Not at all Total ARMANDO-7 score (0-4 normal; 5-9 mild; 10-14 moderate; 15-21 severe): 4 Source: Developed by Drs. Vicente Patel, Debbie Su, Bill Meadows and colleagues, with an educational kwan from [employer]. Review of Systems Const Details: Information is obtained mostly from residential/detention staff as patient is unable to verbalize or communicate appropriately due to his autism Denies chills, Denies fatigue, Denies fever(s), Denies headache(s), Denies malaise and Denies weakness Eyes Denies blurry vision, Denies change in vision, Denies irritation and Denies itchy eyes ENT Denies dysphagia, Denies dizziness, Denies otalgia, Denies headache(s), Denies nasal congestion, Denies neck pain, Denies odynophagia and Denies sore throat Card Denies chest pain, Denies rapid heart rate, Denies irregular heart rhythm, Denies palpitations and Denies dyspnea Resp Denies chest congestion, Denies cough, Denies dyspnea and Denies wheezing GI Denies abdominal pain, Denies bloating, Denies constipation, Denies dysphagia, Denies heartburn, Denies diarrhea, Denies nausea, Denies odynophagia and Denies vomiting Denies hematuria, Denies difficulty urinating, Denies dysuria, Denies urinary frequency and Denies urinary urgency Musc Denies back pain, Denies arthralgias, Denies joint swelling, Denies muscle weakness and Denies neck pain Skin/Breast Denies change in pigmentation, Denies lesions, Denies rash and Denies unusual bruising Neuro Denies dizziness, Denies headache(s), Denies paresthesias and Denies weakness Endo Denies fatigue and Denies palpitations Aller/Immun Denies itchy eyes and Denies wheezing Physical exam (Primary Care) Vital Signs: Last Vital Signs Pulse 65 09/06/23 12:51 BP 110/62 09/06/23 12:51 Pulse Ox 98 09/06/23 12:51 Oxygen Delivery Method Room Air 09/06/23 12:51 BMI result Body Mass Index 43.6 Tobacco/Smoking Status: Tobacco use Status Tobacco use date assessed 09/06/23 09/06/23 12:53 Patient Tobacco Use Status Never used Tobacco 09/06/23 12:53 e-Cigarette/Vaping Use Never Used 09/06/23 12:53 PHQ-9: PHQ-9 Score PHQ-9: Total score 0 09/06/23 12:58 Depression Screening Interpretation: Negative Thrive Assessment: Date of Thrive Assessment Date Thrive assessed 09/06/23 09/06/23 12:53 Currently or been in a relationship where the following occur: no concerns reported Const Other: Physical exam is limited by patient's ability to cooperate with the exam due to his cognitive issues - has autism General: no acute distress and alert HENMT Head: Yes normocephalic and Yes atraumatic Ears: TM's normal bilaterally and EAC's normal General nose exam: No nasal discharge present Face and sinus: Yes normal facial exam Throat: Yes posterior oropharynx normal and Yes tonsils normal (no TP congestion) Eyes Eyelids: Yes eyelids normal Conjunctivae: conjunctivae normal Neck Neck: Yes no lymphadenopathy and Yes supple Thyroid: Thyroid normal Resp Auscultation: clear to auscultation bilaterally, no rales and no wheezes Cardio Rate: regular rate Rhythm: regular rhythm Heart sounds: no murmurs GI Palpation (GI): Soft to palpation and nontender Auscultation: normal bowel sounds General: Yes no CVA tenderness Back/Spine/Pelvis Back: no CVA tenderness Thoracic/Lumbar Spine: thoracic and lumbar spine normal to inspection Skin Rashes: no rashes Neuro General: moves all extremities Extrem General: Yes no clubbing, cyanosis or edema Results Reviewed Results Reviewed: Laboratory Tests 11/06/22 11/06/22 11:49 11:53 WBC 9.5 Hgb 16.2 Hct 47.5 Plt Count 323 Sodium 139 Potassium 3.7 Creatinine 0.86 Estimated GFR > 60 Fasting Glucose 89 Calcium 9.9 AST 16 ALT 25 Triglycerides 228 Cholesterol 214 LDL Cholesterol, Calc 135 HDL Cholesterol 34 TSH 0.68 Ur Specific [place]man 1.020 Urine Protein Trace Urine Glucose (UA) Negative Urine Blood Negative Urine Nitrite Negative Ur Leukocyte Esterase Negative Assessment and Plan Assessment & Plan (1) Annual physical exam: Code(s): Z00.00 - Encounter for general adult medical examination without abnormal findings Plan: Will have patient recheck his labs ROSIE (2) Pure hypercholesterolemia: Code(s): E78.00 - Pure hypercholesterolemia, unspecified Plan: Reminded staff that patient's cholesterol numbers were slightly higher than recommended on his labs done last year Reinforced low cholesterol diet Will recheck his fasting lipids ROSIE for follow up (3) Vitamin D deficiency: Code(s): E55.9 - Vitamin D deficiency, unspecified Plan: Continue Vitamin D3 2000 units QD Will recheck his Vitamin D level ROSIE for follow up (4) Autism: Code(s): F84.0 - Autistic disorder Plan: Follow up with psychiatry (Dr. Khalil) as scheduled (5) OCD (obsessive compulsive disorder): Code(s): F42.9 - Obsessive-compulsive disorder, unspecified Qualifiers: Obsessive-compulsive disorder type: unspecified Qualified Code(s): F42.9 - Obsessive-compulsive disorder, unspecified Plan: Continue Clonidine 0.1 mg BID and 0.2 mg Q HS, Gabapentin 600 mg TID, Topiramate 50 mg BID and 100 mg Q HS and Risperidone 2 mg TID Follow up with psychiatry as scheduled (6) Insomnia: Code(s): G47.00 - Insomnia, unspecified Qualifiers: Insomnia type: unspecified Qualified Code(s): G47.00 - Insomnia, unspecified Plan: Continue Melatonin 3 mg QPM and Trazodone 100 mg 2 tablets Q HS (7) Anxiety: Code(s): F41.9 - Anxiety disorder, unspecified Plan: Continue Clonidine 0.1 mg BID and 0.2 mg Q HS (8) Morbid obesity with BMI of 40.0-44.9, adult: Code(s): E66.01 - Morbid (severe) obesity due to excess calories; Z68.41 - Body mass index [BMI] 40.0-44.9, adult Plan: Reinforced diet/exercise as tolerated/lose weight - patient has lost about 10 pounds since he was here a year ago Staff states that he has been doing a lot of walking on his own lately Plan To return in 1 year for his next annual physical examination Orders: Orders Complete Blood Count Auto Diff Today D64.9 - Anemia, unspecified, Z00.00 - Encounter for general adult medical examination without abnormal findings UA CC w/rflx Micro + Cult Today R30.0 - Dysuria, Z00.00 - Encounter for general adult medical examination without abnormal findings Hemoglobin A1c Today R73.9 - Hyperglycemia, unspecified, Z00.00 - Encounter for general adult medical examination without abnormal findings Comprehensive Thornton. Panel Fast Today E78.00 - Pure hypercholesterolemia, unspecified, Z00.00 - Encounter for general adult medical examination without abnormal findings Lipid Panel Today E78.00 - Pure hypercholesterolemia, unspecified, Z00.00 - Encounter for general adult medical examination without abnormal findings TSH reflex Free T4 Today E78.00 - Pure hypercholesterolemia, unspecified, Z00.00 - Encounter for general adult medical examination without abnormal findings Vitamin D 25-OH Total Today E55.9 - Vitamin D deficiency, unspecified, Z00.00 - Encounter for general adult medical examination without abnormal findings Coding Level of Care Code Est Pt Prev Care [id number]([id number]) Diagnoses Annual physical exam Z00.00 Pure hypercholesterolemia E78.00 Vitamin D deficiency E55.9 Autism F84.0 Obsessive-compulsive disorder, unspecified type F42.9 Obsessive-compulsive disorder type: unspecified Insomnia, unspecified type G47.00 Insomnia type: unspecified Anxiety F41.9 Morbid obesity with BMI of 40.0-44.9, adult E66.01; Z68.41
== END 2023-09-06 13:53 | disposition home or self-care (01) ==
PROVIDERS: Visit Provider Internal Medicine
DX: Z00.00 Encounter for general adult medical examination without abnormal findings (principal); E66.01 Morbid (severe) obesity due to excess calories; Z68.41 Body mass index [BMI] 40.0-44.9, adult; E78.00 Pure hypercholesterolemia, unspecified; E55.9 Vitamin D deficiency, unspecified; F84.0 Autistic disorder; F42.9 Obsessive-compulsive disorder, unspecified; G47.00 Insomnia, unspecified; F41.9 Anxiety disorder, unspecified
CPT/HCPCS: 99395

== ENCOUNTER 2023-09-16 10:37 | Outpatient (REF) | payer MEDICARE, MEDICAID, SELFPAY ==
[2023-09-16 10:55] LABS: MANUAL DIFF FLAG NO
[2023-09-16 11:56] LABS: Basophils Percent Auto 0.5 % (0-2); Eosinophils Absolute Auto 0.1 X10*3/uL (0.0-0.4); Eosinophils Percent Auto 0.9 % (0-4); Hematocrit 45.5 % (42.0-52.0); Hemoglobin 15.8 g/dl (14.0-18.0); Imm Gran Abs Auto 0.02 X10*3/uL (0.00-0.03); Imm Gran Pct Auto 0.3 % (0.0-0.4); Lymphocytes Percent Auto 37.7 % (20-40); Mean Corpuscular HGB Conc 34.7 g/dl (31.0-36.0); Mean Corpuscular Hemoglobin 30.3 pg (27.0-33.0); Mean Corpuscular Volume 87.3 fL (80.0-98.0); Mean Platelet Volume 9.7 fL (9.4-12.4); Monocytes Absolute Auto 0.7 X10*3/uL (0.1-1.2); Monocytes Percent Auto 8.9 % (2-11); Neutrophils Absolute Auto 4.1 x10*3/uL (2.0-8.3); Neutrophils Percent Auto 51.7 % (45-73); Platelet Count 311 X10*3/uL (160-400); Red Blood Count 5.21 X10*6/uL (4.60-5.80); Red Cell Distribution Width 12.8 % (11.0-16.0)
[2023-09-16 12:06] LABS: Estimated Average Glucose 100 mg/dL; Hemoglobin A1c % 5.1 % (<6.0)
[2023-09-16 12:20] LABS: Appearance Urine Clear; Color Urine Yellow; Glucose Urine UA Negative (Negative); Leukocyte Esterase Urine Negative (Negative); Nitrite Urine Negative (Negative); Specific Gravity - Urine 1.025 (1.005-1.025); Urine Blood Negative (Negative); Urine Ketones Trace mg/dL (Negative); Urine Protein Negative (Neg-Trace)
[2023-09-16 12:49] LABS: Alanine Aminotransferase 21 U/L (0-40); Albumin Level 4.6 g/dL (3.5-5.0); Alkaline Phosphatase 72 U/L (39-117); Anion Gap 10 (12-20); Aspartate Amino Transferase 10 U/L (5-37); Blood Urea Nitrogen 12 mg/dL (9-16); Calcium 9.6 mg/dL (8.4-10.2); Carbon Dioxide 27 mmol/L (22-29); Chloride 108 mmol/L (96-108); Cholesterol 206 mg/dL (<200); Estimated Glomerular Filt Rate > 60; Glucose Fasting 76 mg/dL (60-99); HDL Cholesterol 34 mg/dL (>40); LDL Cholesterol Calculated 142 mg/dL (<100); Potassium 3.6 mmol/L (3.3-5.1); Sodium 141 mmol/L (135-145); Total Protein 7.7 g/dL (6.5-8.0); Triglycerides 151 mg/dL (<150)
[2023-09-16 12:51] LABS: Bilirubin Total 0.4 mg/dL (0.0-1.0)
[2023-09-16 13:11] LABS: TSH reflex Free T4 0.74 uIU/mL (0.32-4.0); Vitamin D 25-OH Total 21.6 ng/mL (>30)
== END 2023-09-16 10:38 | disposition home or self-care (01) ==
LOC: HO.LAB 10:37
PROVIDERS: PCP Internal Medicine; Visit Provider Internal Medicine
DX: Z00.00 Encounter for general adult medical examination without abnormal findings (principal); D64.9 Anemia, unspecified; R30.0 Dysuria; R73.9 Hyperglycemia, unspecified; E78.00 Pure hypercholesterolemia, unspecified; E55.9 Vitamin D deficiency, unspecified
CPT/HCPCS: 36415; 80053; 80061; 81003; 82306; 83036; 84443; 85025

== ENCOUNTER 2024-09-25 15:31 | Outpatient (AMB) | payer MEDICARE, MEDICAID, SELFPAY ==
[2024-09-25 15:33] VITALS: BP 146/84; PULSE 97; RESP 18; TEMP 36.8; O2SAT 99; BMI 42.0
--- NOTE | 2024-09-25 15:33 | MHC.PC.OV ---
Vital Signs 09/25/24 15:33 09/25/24 16:08 Height 5 ft 10 in Weight 293 lb BMI 42.0 BP 146/84 H 134/82 Blood Pressure Location Lt brachial Lt brachial Position Sitting Respiration 18 Pulse 97 Pulse Source Pulse Oximeter Temp 98.2 F Temp Source Oral Pulse Oximetry (%) 99 Oxygen Delivery Method Room Air Intake Visit Reasons: annual exam Leacher Required: No Accompanied by: Husbandry PersonAlli Allergies amoxicillin (AMOXICILLIN) Allergy (Intermediate, Verified 09/25/24 15:48) RASH Medication List - Last Reconciled 09/25/24 by DULCE Fung cholecalciferol (vitamin D3) 50 mcg PO DAILY 90 days clonidine HCl 0.2 mg PO BEDTIME clonidine HCl 0.1 mg PO BID gabapentin 600 mg PO TID melatonin 3 mg PO BEDTIME risperidone (Risperdal) 2 mg PO TID topiramate 100 mg PO BEDTIME topiramate 50 mg PO BID trazodone 200 mg PO BEDTIME Tobacco use date assessed: 09/25/24 Dental Screening Dental Screen Date: 09/25/24 Did you have a dental visit in the last 12 months?: Yes Did you have a dental problem in the last 6 months where you did not have access to dental care?: No Was dental information given to patient?: Patient has dentist HPI annual exam HPI Details Dentist:up to date Eye: been a while, does not wear his glasses Snellen: Right: Left: Corrected vision: yes, glasses STI screening:n/a Colonoscopy:n/a Pap Smer:n/a PHQ-9: Flu: up to date COVID: unsure Tdap:no record of this-staff member reports that he will check their records of the long term and let us Diet:regular Exercise: goes for walks with staff from the long term The patient is a 24-year-old autistic male with intellectual disability presenting with staff member from long term for annual physical. Reports foot-related issues requiring a referral to a space engineer. The patient's mother has been managing his foot care, noting significant thickening of the nails and skin accumulation on the heels, suspected to be due to inadequate drying of the feet. The patient has a history of hypercholesterolemia, with previous blood work indicating elevated cholesterol levels. Blood work was ordered last year but was not completed, encouraged long term staff to bring the patient to get this done, also, new order for this next year was placed. The patient recently underwent a dental evaluation, revealing one cavity, with a follow-up appointment scheduled for treatment. The patient has glasses but does not wear them regularly, and it has been some time since his last eye examination, encouraged follow exam. [facility] Medical History Insomnia Anxiety Social communication disorder OCD (obsessive compulsive disorder) Intellectual disability Pure hypercholesterolemia Vitamin D deficiency Morbid obesity with BMI of 40.0-44.9, adult Autism Surgical History No pertinent past surgical history Family History Mother No problems noted. Father No problems noted. Social History Housing: Other Housing Other:: Residential Home Alcohol intake: never Patient Tobacco Use Status: Never used Tobacco e-Cigarette/Vaping Use: Never Used Second Hand Smoke Exposure: No service: No Current occupational status: disabled Cognitive needs: Yes Hearing needs: No Vision needs: Yes Questionnaire PHQ-9 Over the last 2 weeks, how often have you been bothered by any of the following problems? 1. Little interest or pleasure in doing things: not at all 2. Feeling down, depressed, or hopeless: not at all 3. Trouble falling or staying asleep, or sleeping too much: not at all 4. Feeling tired or having little energy: not at all 5. Poor appetite or overeating: not at all 6. Feeling bad about yourself - or that you are a failure or have let yourself or your family down: not at all 7. Trouble concentrating on things, such as reading the newspaper or watching television: not at all 8. Moving or speaking so slowly that other people could have noticed. Or the opposite - being so fidgety or restless that you have been moving around a lot more than usual: not at all 9. Thoughts that you would be better off or of hurting yourself in some way: not at all Total score: 0 Depression Screening Interpretation: Negative Depression Screening Done: Yes 02469 - PHQ-9 Billing: Yes Source: Developed by Drs. Vicente Patel, Bill Harris and colleagues, with an educational kwan from [employer]. Thrive Questionnaire Date Thrive assessed: 09/25/24 I am a: Parent/Caregiver What is your living situation today?: I have a steady place to live Within the past 12 months, did the food you bought not last and you didn't have the money to get more?: Never true Within the past 12 months, did you worry whether your food would run out before you got money to buy more?: Never true Do you have trouble paying for medicines?: No Do you have trouble getting transportation to medical appointments?: No Do you have trouble paying your heating and electricity bill?: No Do you have trouble taking care of your child, family member or friend?: No Do you have trouble with day-to-day activities such as bathing, preparing meals, shopping, managing finances, etc.?: No Are you currently unemployed and looking for a job?: No Are you interested in more education?: No Please select the resources that you would like help with: None Currently or been in a relationship where the following occur: I choose not to answer THRIVE Score: 0 AUDIT C Alcohol Use Questionnaire (AUDIT-C) 1. How often do you have a drink containing alcohol?: Never Total Score: 0 Score Reviewed/Action Taken: No ARMANDO-7 AMB Questionnaire ARMANDO-7 Date ARMANDO - 7 assessed: 09/25/24 Feeling nervous, anxious, or on edge: 2 = More than half the days Not being able to stop or control worryin = More than half the days Worrying too much about different things: 2 = More than half the days Trouble relaxin = Not at all Being so restless that it is hard to sit still: 0 = Not at all Becoming easily annoyed or irritable: 0 = Not at all Feeling afraid as if something awful might happen: 0 = Not at all Total ARMANDO-7 score (0-4 normal; 5-9 mild; 10-14 moderate; 15-21 severe): 6 Source: Developed by Debbie Velasquez Kurt Kroenke and colleagues, with an educational kwan from [employer]. ARMANDO-7 Assessment Billing ARMANDO-7 Assessment Tool: ARMANDO-7 Assessment 68860 Review of Systems Const Details: The patient has mental impairment and is unable to answer certain questions. Most of the information were taken from the long term staff member Denies headache(s) Eyes Denies loss of vision ENT Denies vertigo, Denies dizziness, Denies headache(s) and Denies sore throat Card Denies chest pain, Denies leg edema and Denies lightheadedness Resp Denies cough, Denies hemoptysis and Denies wheezing GI Denies abdominal pain, Denies melena, Denies constipation, Denies diarrhea and Denies vomiting Denies dysuria, Denies urinary frequency and Denies urinary urgency Musc Denies arthralgias, Denies joint swelling, Denies numbness and Denies tingling Skin/Breast Reports other (bilateral heel calluses) Neuro Denies Abnormal speech present, Denies behavioral changes, Denies vertigo, Denies dizziness, Denies headache(s), Denies loss of vision, Denies memory loss, Denies numbness and Denies tingling Psych Reports anxiety, Denies behavioral changes, Reports depression, Denies memory loss and Denies panic attacks Moshe/Lymph Denies easy bleeding and Denies easy bruising Aller/Immun Denies wheezing Physical exam (Primary Care) Vital Signs: Last Vital Signs Temp 98.2 F 09/25/24 15:33 Pulse 97 09/25/24 15:33 Resp 18 09/25/24 15:33 BP 134/82 09/25/24 16:08 Pulse Ox 99 09/25/24 15:33 Oxygen Delivery Method Room Air 09/25/24 15:33 BMI result Body Mass Index 42.0 Tobacco/Smoking Status: Tobacco use Status Tobacco use date assessed 09/25/24 09/25/24 15:46 Patient Tobacco Use Status Never used Tobacco 09/25/24 15:46 e-Cigarette/Vaping Use Never Used 09/25/24 15:46 PHQ-9: PHQ-9 Score PHQ-9: Total score 0 09/25/24 15:52 Depression Screening Interpretation: Negative Thrive Assessment: Date of Thrive Assessment Date Thrive assessed 09/25/24 09/25/24 15:46 Currently or been in a relationship where the following occur: I choose not to answer Const General: healthy appearing, no acute distress, alert and awake Nutritional Appearance: well nourished Orientation/consciousness: oriented to person, oriented to place and oriented to time HENMT Ears: TM's normal bilaterally General nose exam: Normal nasal mucous membranes and turbinates present Eyes Conjunctivae: conjunctivae normal Sclerae: sclerae normal Pupils: Equal, round and reactive pupils present Neck Neck: Yes no lymphadenopathy and Yes no JVD Thyroid: Thyroid normal Carotids: no bruits Resp Effort & Inspection: normal respiratory effort and not tachypneic Auscultation: no crackles, no rales, no rhonchi and no wheezes Cardio Rate: regular rate Rhythm: regular rhythm Heart sounds: no murmurs and normal S1 and S2 GI Palpation (GI): Soft to palpation, nontender, no hepatomegaly and no splenomegaly Auscultation: normal bowel sounds General: Yes no CVA tenderness Back/Spine/Pelvis Back: no CVA tenderness Cervical Spine: No Cervical spine tenderness Thoracic/Lumbar Spine: No thoracic spinal tenderness and No lumbar spinal tenderness Skin General skin exam: dry skin and other (calluses to bilateral heels) Neuro General: oriented to person, oriented to place, oriented to time and CN's II-XI intact bilaterally Cranial nerves: Yes Equal, round and reactive pupils present Speech: No Abnormal speech present Gait exam (Neuro): Normal gait present Motor exam (neuro): no tremor noted Deep tendon reflexes (DTR's): Right triceps reflex intensity grade: 2+, Left triceps reflex intensity grade: 2+, Rt Biceps (C5, C6): 2+, Left biceps reflex intensity grade: 2+, Right brachioradialis reflex intensity grade: 2+, Left brachioradialis reflex intensity grade: 2+, Right patellar reflex intensity grade: 2+ and Left patellar reflex intensity grade: 2+ Extrem Right upper extremity: full ROM Left upper extremity: full ROM Right lower extremity: full ROM; no edema Left lower extremity: full ROM; no edema Psych Mental Status: mental status grossly normal Speech and movement: Normal speech and movement present Affect: normal affect Attitude: cooperative Thought process: Normal thought process present Coding Level of Care Code Est Pt Prev Care [id number]) Diagnoses Annual physical exam Z00.00 Insomnia, unspecified type G47.00 Insomnia type: unspecified Intellectual disability F79 Autism F84.0 Social communication disorder F80.89 Pure hypercholesterolemia E78.00 Anxiety F41.9 Obsessive-compulsive disorder, unspecified type F42.9 Obsessive-compulsive disorder type: unspecified Morbid obesity with BMI of 40.0-44.9, adult E66.01; Z68.41 Foot callus L84 Additional Codes ARMANDO-7 Assessment Billing - ARMANDO-7 Assessment Tool: ARMANDO-7 Assessment 32860 ([id number]) PHQ-9 - 08519 - PHQ-9 Billing: Yes ([id number]) Time Spent (min) 38 Assessment & Plan Assessment & Plan (1) Annual physical exam: Code(s): Z00.00 - Encounter for general adult medical examination without abnormal findings Category: Medical Plan: Reviewed preventative guidelines with the patient and long term staff. No recent labs to review. Labs ordered and the long term staff was encouraged to bring patient to complete blood work as soon as possible. No records of tetanus vaccine-staff member will check their records and update us. (2) Insomnia: Code(s): G47.00 - Insomnia, unspecified Category: Medical Qualifiers: Insomnia type: unspecified Qualified Code(s): G47.00 - Insomnia, unspecified Plan: Reinforced sleep hygiene Continue trazodone 200mg at bedtime and melatonin 3 mg at bedtime (3) Intellectual disability: Code(s): F79 - Unspecified intellectual disabilities Category: Medical Plan: Continue risperidone 2 mg t.i.d. Follow up with Psychiatry as scheduled (4) Autism: Code(s): F84.0 - Autistic disorder Category: Medical Plan: Encouraged CBT Follow up with Psychiatry as scheduled (5) Social communication disorder: Code(s): F80.89 - Other developmental disorders of speech and language Category: Medical Plan: Encouraged CBT Follow up with Psychiatry as scheduled (6) Pure hypercholesterolemia: Code(s): E78.00 - Pure hypercholesterolemia, unspecified Category: Medical Plan: tri 151, t-chol 206, ldl 142, hdl 34 Discussed lifestyle modifications including dietary changes and physical activity (7) Anxiety: Code(s): F41.9 - Anxiety disorder, unspecified Category: Medical Plan: Encouraged CBT continue clonidine HCI 0.2 mg at bedtime (8) OCD (obsessive compulsive disorder): Code(s): F42.9 - Obsessive-compulsive disorder, unspecified Category: Medical Qualifiers: Obsessive-compulsive disorder type: unspecified Qualified Code(s): F42.9 - Obsessive-compulsive disorder, unspecified Plan: Continue gabapentin 600 mg t.i.d., risperidone 2 mg t.i.d., topiramate 50 mg b.i.d. and 100 mg at bedtime Follow up with Psychiatry as scheduled (9) Morbid obesity with BMI of 40.0-44.9, adult: Code(s): E66.01 - Morbid (severe) obesity due to excess calories; Z68.41 - Body mass index [BMI] 40.0-44.9, adult Category: Medical Plan: Patient has lost 11 lb since last year Discussed lifestyle modifications including dietary changes and physical activity (10) Foot callus: Code(s): L84 - Corns and callosities Category: Medical Plan: Podiatry referral placed Orders: Orders TSH reflex Free T4 1 Year E55.9 - Vitamin D deficiency, unspecified, E66.01 - Morbid (severe) obesity due to excess calories, E78.00 - Pure hypercholesterolemia, unspecified, F41.9 - Anxiety disorder, unspecified, F42.9 - Obsessive-compulsive disorder, unspecified, F79 - Unspecified intellectual disabilities, F84.0 - Autistic disorder, G47.00 - Insomnia, unspecified, Z00.00 - Encounter for general adult medical examination without abnormal findings, Z68.41 - Body mass index [BMI] 40.0-44.9, adult, Z68.42 - Body mass index [BMI] 45.0-49.9, adult UA CC w/rflx Micro + Cult 1 Year E55.9 - Vitamin D deficiency, unspecified, E66.01 - Morbid (severe) obesity due to excess calories, E78.00 - Pure hypercholesterolemia, unspecified, F41.9 - Anxiety disorder, unspecified, F42.9 - Obsessive-compulsive disorder, unspecified, F79 - Unspecified intellectual disabilities, F84.0 - Autistic disorder, G47.00 - Insomnia, unspecified, Z00.00 - Encounter for general adult medical examination without abnormal findings, Z68.41 - Body mass index [BMI] 40.0-44.9, adult, Z68.42 - Body mass index [BMI] 45.0-49.9, adult Complete Blood Count Auto Diff Today E66.01 - Morbid (severe) obesity due to excess calories, E78.00 - Pure hypercholesterolemia, unspecified, F79 - Unspecified intellectual disabilities, F84.0 - Autistic disorder, G47.00 - Insomnia, unspecified, Z00.00 - Encounter for general adult medical examination without abnormal findings, Z68.41 - Body mass index [BMI] 40.0-44.9, adult Vitamin D 25-OH Total Today E66.01 - Morbid (severe) obesity due to excess calories, E78.00 - Pure hypercholesterolemia, unspecified, F79 - Unspecified intellectual disabilities, F84.0 - Autistic disorder, G47.00 - Insomnia, unspecified, Z00.00 - Encounter for general adult medical examination without abnormal findings, Z68.41 - Body mass index [BMI] 40.0-44.9, adult Complete Blood Count Auto Diff 1 Year E55.9 - Vitamin D deficiency, unspecified, E66.01 - Morbid (severe) obesity due to excess calories, E78.00 - Pure hypercholesterolemia, unspecified, F41.9 - Anxiety disorder, unspecified, F42.9 - Obsessive-compulsive disorder, unspecified, F79 - Unspecified intellectual disabilities, F84.0 - Autistic disorder, G47.00 - Insomnia, unspecified, Z00.00 - Encounter for general adult medical examination without abnormal findings, Z68.41 - Body mass index [BMI] 40.0-44.9, adult, Z68.42 - Body mass index [BMI] 45.0-49.9, adult Comprehensive [place]. Panel Fast 1 Year E55.9 - Vitamin D deficiency, unspecified, E66.01 - Morbid (severe) obesity due to excess calories, E78.00 - Pure hypercholesterolemia, unspecified, F41.9 - Anxiety disorder, unspecified, F42.9 - Obsessive-compulsive disorder, unspecified, F79 - Unspecified intellectual disabilities, F84.0 - Autistic disorder, G47.00 - Insomnia, unspecified, Z00.00 - Encounter for general adult medical examination without abnormal findings, Z68.41 - Body mass index [BMI] 40.0-44.9, adult, Z68.42 - Body mass index [BMI] 45.0-49.9, adult Lipid Panel 1 Year E55.9 - Vitamin D deficiency, unspecified, E66.01 - Morbid (severe) obesity due to excess calories, E78.00 - Pure hypercholesterolemia, unspecified, F41.9 - Anxiety disorder, unspecified, F42.9 - Obsessive-compulsive disorder, unspecified, F79 - Unspecified intellectual disabilities, F84.0 - Autistic disorder, G47.00 - Insomnia, unspecified, Z00.00 - Encounter for general adult medical examination without abnormal findings, Z68.41 - Body mass index [BMI] 40.0-44.9, adult, Z68.42 - Body mass index [BMI] 45.0-49.9, adult Vitamin D 25-OH Total 1 Year E55.9 - Vitamin D deficiency, unspecified, E66.01 - Morbid (severe) obesity due to excess calories, E78.00 - Pure hypercholesterolemia, unspecified, F41.9 - Anxiety disorder, unspecified, F42.9 - Obsessive-compulsive disorder, unspecified, F79 - Unspecified intellectual disabilities, F84.0 - Autistic disorder, G47.00 - Insomnia, unspecified, Z00.00 - Encounter for general adult medical examination without abnormal findings, Z68.41 - Body mass index [BMI] 40.0-44.9, adult, Z68.42 - Body mass index [BMI] 45.0-49.9, adult Comprehensive [place]. Panel Fast Today E66.01 - Morbid (severe) obesity due to excess calories, E78.00 - Pure hypercholesterolemia, unspecified, F79 - Unspecified intellectual disabilities, F84.0 - Autistic disorder, G47.00 - Insomnia, unspecified, Z00.00 - Encounter for general adult medical examination without abnormal findings, Z68.41 - Body mass index [BMI] 40.0-44.9, adult Lipid Panel Today E66.01 - Morbid (severe) obesity due to excess calories, E78.00 - Pure hypercholesterolemia, unspecified, F79 - Unspecified intellectual disabilities, F84.0 - Autistic disorder, G47.00 - Insomnia, unspecified, Z00.00 - Encounter for general adult medical examination without abnormal findings, Z68.41 - Body mass index [BMI] 40.0-44.9, adult TSH reflex Free T4 Today E66.01 - Morbid (severe) obesity due to excess calories, E78.00 - Pure hypercholesterolemia, unspecified, F79 - Unspecified intellectual disabilities, F84.0 - Autistic disorder, G47.00 - Insomnia, unspecified, Z00.00 - Encounter for general adult medical examination without abnormal findings, Z68.41 - Body mass index [BMI] 40.0-44.9, adult UA CC w/rflx Micro + Cult Today E66.01 - Morbid (severe) obesity due to excess calories, E78.00 - Pure hypercholesterolemia, unspecified, F79 - Unspecified intellectual disabilities, F84.0 - Autistic disorder, G47.00 - Insomnia, unspecified, Z00.00 - Encounter for general adult medical examination without abnormal findings, Z68.41 - Body mass index [BMI] 40.0-44.9, adult Referrals Podiatry Referral L84 - Corns and callosities
--- OUTSIDE RECORDS SUMMARY | 2024-09-25 15:33 | XMS_ITS | Encounter Summary ---
Author Organization [facility] Address [address] [place] [id number] Phone Care Team Providers Care Superintendent Overhead Distribution Name Role Phone Nichole Haley MD Primary Care Provider Encounter Details Date Type Department Care Team (Late st Contact Info) Description 10/06/2013 Documentation [facility] [place] Family Medicine [address] [place] [address] Family Medicine, Physician [address] [place], [place] [id number] Social History Tobacco Use Types Packs/Day Years Used Date Smoking Tobacco: Never Assessed Sex and Gender Information Value Date Recorded Sex Assigned at Not on file Legal Sex Male 5:17 PM EDT Gender Identity Not on file Sexual Orientation Not on file documented as of this encounter Plan of Treatment Not on file documented as of this encounter Visit Diagnoses Not on filedocumented in this encounter Care Teams Superintendent Overhead Distribution Relationship Specialty Start Date End Date Nichole Haley MD [address] [place] [id number] PCP - General 11/16/16 07/24/22 documented as of this encounter
[2024-09-25 16:08] VITALS: BP 134/82
== END 2024-09-25 16:19 | disposition home or self-care (01) ==
LOC: HO.HMCH 15:32
PROVIDERS: PCP Internal Medicine
DX: Z00.00 Encounter for general adult medical examination without abnormal findings (principal); G47.00 Insomnia, unspecified; E66.01 Morbid (severe) obesity due to excess calories; Z68.41 Body mass index [BMI] 40.0-44.9, adult; F79 Unspecified intellectual disabilities; F84.0 Autistic disorder; F80.89 Other developmental disorders of speech and language; E78.00 Pure hypercholesterolemia, unspecified; F41.9 Anxiety disorder, unspecified; F42.9 Obsessive-compulsive disorder, unspecified; L84 Corns and callosities

== ENCOUNTER → 2024-09-25 15:31 | Outpatient (BNVA) | payer MEDICARE, MEDICAID, SELFPAY | PROVIDERS: PCP Internal Medicine | DX: Z00.00 Encounter for general adult medical examination without abnormal findings (principal); G47.00 Insomnia, unspecified; F79 Unspecified intellectual disabilities; F84.0 Autistic disorder; F80.89 Other developmental disorders of speech and language; E78.00 Pure hypercholesterolemia, unspecified; F41.9 Anxiety disorder, unspecified; F42.9 Obsessive-compulsive disorder, unspecified; E66.01 Morbid (severe) obesity due to excess calories; Z68.41 Body mass index [BMI] 40.0-44.9, adult; L84 Corns and callosities | CPT/HCPCS: 96127; 99395 ==